=== PATIENT | male | born 1940 | race Caucasian/White ===

== ENCOUNTER 2023-04-08 15:30 | Outpatient (RCR) | payer MEDICARE, SELFPAY | END 2023-08-06 23:59 | disposition home or self-care (01) | PROVIDERS: Visit Provider Physician Assistant | DX: Z98.890 Other specified postprocedural states (principal); Z51.89 Encounter for other specified aftercare | CPT/HCPCS: 97035; 97110; 97140; 97165; X5282 ==

== ENCOUNTER 2023-07-02 14:18 | Emergency (ER) | payer MEDICARE, SELFPAY ==
[2023-07-02 14:22] VITALS: BP 109/67; PULSE 71; RESP 18; TEMP 36.3; O2SAT 97; BMI 27.9
--- NOTE | 2023-07-02 15:15 | ED_ITS ---
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 Discharged with Elifar[facility] and needs workup for possible AFib) presenting to the ER this afternoon for evaluation after he fell and hit his head. He was getting up from bed when he fell and hit the top of his head. He did create a small injury to the top is head and bleeding was controlled prior to arrival. His fall was unwitnessed, but his thinks that he probably tripped on the rug and then head against the closet door. The patient has suffered a diagonal linear abrasion/laceration to his frontal scalp. He was bleeding vigorously at home but was able to control it by direct pressure. He has no other injuries. He denies headache. No neck pain. No numbness or tingling or weakness in his arms or legs. He does have some pre-existing speech trouble and bake gait imbalance because of his previous stroke but is otherwise at his baseline. No other injuries or complaints. No neck pain. No back pain. No chest pain rib pain. No abdominal pain. He did not injure his arms or legs. Related Data Home Medications Medication Instructions Recorded Confirmed apixaban 5 mg tablet (Eliquis) 5 mg PO BID 07/02/23 07/02/23 atorvastatin 40 mg tablet 40 mg PO DAILY 07/02/23 07/02/23 pantoprazole 40 mg tablet,delayed 40 mg PO DAILY 07/02/23 07/02/23 release Allergies Allergy/AdvReac Type Severity Reaction Status Date / Time morphine Allergy Severe Verified 07/02/23 14:27 PFSH PFS Social History Smoking Status: Never smoker How often do you have a drink containing alcohol: never AUDIT-C Alcohol total score: 0 Non-prescribed substance use: denies use Exam Narrative: Exam Narrative: Constitutional: Appears well-developed and well-nourished. Alert. Polite and cooperative. Speaks 1 or 2 word answers because of his baseline aphasia.. Non toxic. HENT: Head: 4 cm linear superficial abrasion/laceration on frontal scalp. No active bleeding. Does not penetrate through the dermis. No depressed skull fracture, Raccoon Eyes, Hernandez's sign, or hemotympanum. Face normal. TMs normal. Nose: Nose normal. Mouth/Throat: Oral mucosa is clear and moist. no trismus. Pharynx normal. Tonsils symmetric. No tonsillar enlargement, erythema, or exudate. Eyes: Conjunctivae normal. EOM normal. Pupils equal, round, and reactive to light. No scleral icterus. Neck: Normal range of motion. Neck supple. No tracheal deviation present. Cardiovascular: Normal rate, regular rhythm. No gallop. No friction rub. No murmur heard. Symmetric radial artery pulses Pulmonary/Chest: Effort normal. No stridor. No respiratory distress. No wheezes. No rales. No rhonchi . No tenderness. Abdominal: Soft. Bowel sounds normal. No distension. No mass. No tenderness. No rebound. No guarding. Musculoskeletal: RUE: Normal range of motion. No tenderness. No deformity LUE: Normal range of motion. No tenderness. No deformity RLE: Normal range of motion. No edema. No tenderness. No deformity LLE: Normal range of motion. No edema. No tenderness. No deformity Neurological: Mental status normal. Attention normal. Alert and oriented x3. GCS 15. Memory normal. Speech slow and halting due to baseline aphasia. Cognition normal. Cranial Nerves intact II-XII except I did not formally test gag or visual acuity. EOMI. Palate elevates symmetrically and tongue protrudes in the midline. Strength: 5/5 trapezius on the right and left 5/5 deltoid on the right and left 5/5 biceps on the right and left 5/5 triceps on the right and left 5/5 prototype model maker on the right and left 5/5 thumb opposition on the right and le ft 5/5 finger abduction on the right and le ft 5/5 hip flexors (L3) on the right and le ft 5/5 quadriceps (L4) on the right and lef t 5/5 tibialis anterior on the right and l eft 5/5 EHL (L5) on the right and left 5/5 gastrocnemius (S1) on the right and left 5/5 hamstring on the right and left Sensation intact to light touch in both upper extremities (C4-T1) Sensation intact to light touch in Both lower extremities (L4-S1). Finger to nose and coordination normal. Skin: Skin is warm and dry. No rash noted. No pallor. Normal capillary refill. Psychiatric: Normal mood. Normal affect. Const: Vital Signs, click to edit/add: Vital Signs - 24 hr 07/02/23 14:22 07/02/23 16:15 Temperature 97.3 F L Pulse Rate [Pulse Oximeter] 71 67 Respiratory Rate 18 18 Blood Pressure [Ri ght Upper Arm] 109/67 119/64 Pulse Oximetry 97 97 Oxygen Delivery Me thod Room Air Course Vital Signs Vital signs: Initial Vital Signs Temperature 97.3 F L 07/02/23 14:22 Temperature Source Temporal Artery Scan 07/02/23 14:22 Pulse Rate 71 07/02/23 14:22 Respiratory Rate 18 07/02/23 14:22 Blood Pressure 109/67 07/02/23 14:22 Blood Pressure Mean 81 07/02/23 14:22 Blood Pressure Position Sitting 07/02/23 14:22 Pulse Oximetry 97 07/02/23 14:22 Oxygen Delivery Method Room Air 07/02/23 14:22 Vital Signs Temperature 97.3 F L 07/02/23 14:22 Pulse Rate 71 07/02/23 14:22 Respiratory Rate 18 07/02/23 14:22 Blood Pressure 109/67 07/02/23 14:22 Pulse Oximetry 97 07/02/23 14:22 Oxygen Delivery Method Room Air 07/02/23 14:22 Temperature 97.3 F L 07/02/23 14:22 Pulse Rate 67 07/02/23 16:15 Respiratory Rate 18 07/02/23 16:15 Blood Pressure 119/64 07/02/23 16:15 Pulse Oximetry 97 07/02/23 16:15 Oxygen Delivery Method Room Air 07/02/23 14:22 Medications Administered Medications: Discontinued Medications Generic Name Dose Route Start Last Admin Trade Name Freq PRN Reason Stop Dose Admin Bacitracin Zinc 1 each 07/02/23 15:45 07/02/23 16:18 Bacitracin 0.9 Gm Packet TOPICAL 07/02/23 15:46 1 each ONCE ONE Administration Medical Decision Making MDM Narrative Medical decision making narrative: This patient presents with blunt head trauma, after he suffered a mechanical tri p and fall at home today. He does have some gait instability after recent stroke. He and his are pretty confident that he tripped over the edge of the rug and did not have a syncopal event. She does not have any other new neurologic deficits to suggest new or worsening stroke. Since he did strike his head and is now on Eliquis were concerned about possible intracranial bleeding. He does have a superficial linear abrasion which can heal by secondary intention. Wound care and antibiotic ointment were applied. Differential includes intracranial injuries (e.g. skull fracture, epidural hematoma, subdural hematoma, intracerebral hemorrhage, and traumatic subarachnoid hemorrhage), verses concussion or other traumatic brain injury. CT imaging was obtained and fortunately was normal. The patient/family understand that they must return if any red flags appear/develop in the coming hours/days, as this may represent an indication to perform a repeat CT scan or further evaluation. Discussed the risk of delayed bleeding on anticoagulants. I have noted that red flags include: headaches that get worse, increased drowsiness, strange behavior, repetitive speech, seizures, repeated vomiting, growing confusion, increased irritability, slurred speech, weakness or numbness, and loss of responsiveness. This information will also be provided in writing at discharge. The patient's questions have been answered. They have a responsible adult to accompany them home. t Imaging Data CT scan - head: Attestation: I have reviewed the pertinent imaging results. My impression: Impression: 1. No evidence of an acute intracranial process. 2. No fracture or soft tissue abnormality. Discharge Plan Discharge Clinical Impression: Abrasion of scalp, Closed head injury Patient Disposition: Home, Self-Care Condition: Stable Instructions: Head Injury (ED) Additional Instructions: As we discussed, please come back to the ER right away if you have any problems especially worsening headache, new confusion, vomiting, unsteadiness, more falls, or any other unusual behavior. Prescriptions: No Action atorvastatin 40 mg tablet 40 mg PO DAILY pantoprazole 40 mg tablet,delayed release (DR/EC) 40 mg PO DAILY Eliquis 5 mg tablet 5 mg PO BID Follow Up/Referrals: Provider,Not a Local [Referring] - Stand Alone Forms: [employer] Info Instructions
--- NOTE | 2023-07-02 15:33 | CT_ITS ---
Patient: BONNIE BOSTON Facility:?[facility] Patient ID:?[id number] Site Patient ID:?[id number]. Site :?[id number] Study:?CT-Head WO-07/02/2023 3:58:06 PM Ordering Physician:SRAVANTHI Final Report: Indication: Fall Technique: CT head without IV contrast Comparison: None Findings: Brain Parenchyma: Global cortical involutional changes. No acute infarct, acute intracranial hemorrhage, mass effect or midline shift. Periventricular and supraventricular white matter hypodensity, suggestive of chronic microvascular ischemic changes. Ventricles: No hydrocephalus. Mild ventricular enlargement, commensurate with the degree of cortical involutional changes and sulcal prominence. Extra-axial Spaces: No abnormal fluid collection. Paranasal sinuses: No significant mucosal thickening. Orbits: Unremarkable. Mastoid Sinuses: Unremarkable. Cranium: No acute fracture. Soft tissues: Unremarkable. Impression: 1. No evidence of an acute intracranial process. 2. No fracture or soft tissue abnormality. Please note that all CT scans at this facility use dose modulation, iterative reconstruction, and/or weight-based dosing when appropriate to reduce radiation dose to as low as reasonably achievable. Dictated by Dustin Diez MD @ 07/02/2023 4:09:06 PM Signed by:?Dustin Diez MD @07/02/2023 4:09:06 PM (Electronic Signature)
[2023-07-02 16:15] VITALS: BP 119/64; PULSE 67; RESP 18; O2SAT 97
[2023-07-02] MEDS: BACITRACIN 0.9 GM PACKET 1 EACH TOPICAL (16:18)
== END 2023-07-02 16:47 | disposition home or self-care (01) ==
PROVIDERS: Emergency Provider Emergency Medicine; PCP Student in an Organized Health Care Education/Training Program
DX: S00.01XA Abrasion of scalp, initial encounter (principal); W06.XXXA Fall from bed, initial encounter
CPT/HCPCS: 70450; 99283; A9270

== ENCOUNTER 2023-07-05 23:39 | Emergency (ER) | payer MEDICARE, SELFPAY ==
[2023-07-05 23:49] VITALS: BP 130/73; PULSE 67; RESP 18; TEMP 36.7; O2SAT 95; BMI 27.9
--- NOTE | 2023-07-05 23:54 | CT_ITS ---
Patient: BONNIE BOSTON Facility:?[facility] Patient ID:?[id number] Site Patient ID:?[id number]. Site :?[id number] Study:?CT-Head W/O-07/06/2023 12:33:14 AM Ordering Physician:RAND Final Report: INDICATION: Slurred speech TECHNIQUE: CT Head without i.v. contrast. Coronal and sagittal reformats were obtained. COMPARISON: 07/02/2023 FINDINGS: CSF space: Unremarkable for age. Brain: No evidence of mass, acute infarction or hemorrhage is seen. No mass- effect or midline shift is seen. Mild diffuse cortical atrophy is noted. There is a curvilinear hypodensity present within the left thalamus, more distinct than on prior examination. Calvarium: The visualized paranasal sinuses are well aerated. The mastoid air cells are clear. The visualized orbits are grossly unremarkable. The calvarium is unremarkable in appearance with no fractures identified. IMPRESSION: 1. There is a curvilinear hypodensity present within the left thalamus, more distinct than on prior examination. The morphology would be unusual for an infarct and assessment with MRI may be helpful. Dictated by Obdulio Sherwood MD @ 07/06/2023 12:50:43 AM Please note that all CT scans at this facility use dose modulation, iterative reconstruction, and/or weight-based dosing when appropriate to reduce radiation dose to as low as reasonably achievable. Dictated by: Obdulio Sherwood MD @ 07/06/2023 00:50:45 Signed by:?Obdulio Sherwood MD @07/06/2023 12:50:45 AM ----ADDENDUM---- ADDENDUM: I reviewed images from outside CT head studies dated 05/24/23 and 05/25/23. There are no substantive changes by CTA; please refer to the most recent MRI findings. ROBE BRAY M.D. Interventional Neuroradiologist [email or web address] LOW:kavita D& Transcribed: 3:16 p.m. Signed by:?Robe Bray MD @07/21/2023 3:25:42 PM (Electronic Signature)
[2023-07-06] VITALS (10 sets, daily range): BP systolic 98–134; BP diastolic 63–73; PULSE 66–71; RESP 16–18; O2SAT 92–96
[2023-07-06 00:19] LABS: Basophils Absolute Auto 0.04 K/uL (0.00-0.30); Basophils Percent Auto 0.5 % (0.0-3.0); Eosinophils Absolute Auto 0.13 K/uL (0.00-0.50); Eosinophils Percent Auto 1.5 % (0.0-7.0); Hematocrit 45.3 % (37.0-53.0); Hemoglobin* 14.7 gm/dL (13.5-17.5); Immature Granulocytes Abs Auto 0.01 K/uL (0.00-0.30); Immature Granulocytes Pct Auto 0.1 %; Lymphocytes Absolute Auto 2.13 K/uL (0.90-2.90); Lymphocytes Percent Auto 24.5 % (20-44); Mean Corpuscular HGB Conc 33 gm/dL (32-36); Mean Corpuscular Hemoglobin 32 pg (26-34); Mean Corpuscular Volume 98 fL (80-100); Monocytes Percent Auto 6.9 % (0.0-11.0); Neutrophils Absolute Auto 5.79 K/uL (1.7-7.0); Neutrophils Percent Auto 66.5 % (42.0-72.0); Platelet Count* 169 K/uL (140-440); RDW Coefficient of Variation % 12.8 % (11.5-15.5); Red Blood Count 4.64 m/uL (4.30-5.90)
[2023-07-06 00:20] LABS: Albumin* 4.3 g/dL (3.3-5.0); Chloride* 109 mmol/L (96-114); Slide Review Reflex No
[2023-07-06 00:21] LABS: Potassium* 4.4 mmol/L (3.6-5.1); Sodium* 140 mmol/L (135-149)
[2023-07-06 00:23] LABS: Anion Gap 6 mEq/L (7-15); Bilirubin Total* 2.3 mg/dL (0.1-1.5); Carbon Dioxide* 25 mmol/L (20-32); Creatinine* 0.9 mg/dL (0.5-1.5); Est. Creatinine Clearance* 58.57; Estimated Glomerular Filt Rate 84 ml/min
[2023-07-06 00:24] LABS: Alanine Aminotransferase* 29 U/L (4-50); Alkaline Phosphatase* 57 U/L (40-150); Aspartate Amino Transferase* 26 U/L (12-35); Blood Urea Nitrogen* 18 mg/dL (7-30); Calcium* 9.2 mg/dL (8.4-10.6); Glucose* 112 mg/dL (60-115); Total Protein* 7.6 g/dL (6.0-8.3)
--- NOTE | 2023-07-06 00:26 | ED.GENADULT ---
HPI - General Adult General Date Seen: 07/06/23 <Rodger Stallings - Last Filed: 07/06/23 01:09> Chief complaint: Unspecified Complaint, Adult <Rodger Stallings - Last Filed: 07/06/23 01:09> Stated complaint: mixed up speech, stroke May 2022 <Rodger Stallings Last Filed: 07/06/23 01:09> Time Seen by Provider: 07/05/23 23:46 <Rodger Stallings - Last Filed: 07/06/23 01:09> Source: patient and family <Rodger Stallings - Last Filed: 07/06/23 01:09> Mode of arrival: ambulatory <Rodger Stallings DO - Last Filed: 07/06/23 01:09> Limitations: no limitations <Rodger Stallings Last Filed: 07/06/23 01:09> History of Present Illness HPI narrative: Patient is an 82-year-old male presenting to emergency department for speech issues. Patient to better about 19:30 when he woke up about 21:15 when his states she thought he was mixing up his speech and was sounding confused. She states this is what he was like previously when he had a stroke 6 weeks ago on 05/16/2023. He has residual right-sided weakness from that. He told her that there is rather come to the emergency department to be evaluated. She states by the time they arrived he was acting back to normal and he wanted to go home but she was insistent that he be seen and evaluated. She states that this time he is acting completely back to baseline is no longer having symptoms. He states he he is feeling back to normal at this time also. Because she was able to answer all questions I asked him appropriately. Was following all commands appropriately. Denies headache, chest pain, shortness of breath, vision changes, weakness, numbness, abdominal pain, dysuria. <Rodger Stallings DO - Last Filed: 07/06/23 01:09> Related Data Home medications: Home Medications Medication Instructions Recorded Confirmed apixaban 5 mg tablet (Eliquis) 5 mg PO BID 07/02/23 07/02/23 atorvastatin 40 mg tablet 40 mg PO DAILY 07/02/23 07/02/23 pantoprazole 40 mg tablet,delayed 40 mg PO DAILY 07/02/23 07/02/23 release <Rodger Stallings DO - Last Filed: 07/06/23 01:09> Allergies/adverse reactions: Allergies Allergy/AdvReac Type Severity Reaction Status Date / Time morphine Allergy Severe Verified 07/02/23 14:27 <Rodger Stallings DO - Last Filed: 07/06/23 01:09> Review of Systems Status of ROS: Reports: 10 or more systems reviewed and unremarkable except as noted in History and below <Rodger Stallings DO - Last Filed: 07/06/23 01:09> PFSH PFS Social History: Social History Smoking Status: Never smoker How often do you have a drink containing alcohol: never AUDIT-C Alcohol total score: 0 Non-prescribed substance use: denies use <Rodger Stallings DO - Last Filed: 07/06/23 01:09> Exam Narrative: Exam Narrative: Const: Well-nourished, Well-developed, in no distress Eyes: PERRL, no conjunctival injection, and symmetrical lids HENT: Atraumatic external nose and ears. Moist mucous membranes. Neck: Symmetric, trachea midline, No thyromegaly. CVS: RRR, No murmurs or gallops. Peripheral pulses 2+ and equal in all extremities RESP: Unlabored respiratory effort. Clear to auscultation bilaterally. GI: Nontender/Nondistended, No rebound or guarding. MSK:Extremities w/o deformity, Normal Active ROM Skin: Warm, Dry. No rashes or lesions. Neuro: Normal Muscle tone, Cranial nerves 2-12 grossly intact, normal [id number], normal [id number], normal gait, normal strength 5/5 upper lower extremities bilaterally, normal sensation upper and lower extremities bilaterally, normal rapid alternating movements. Psych: Awake, Alert, & Oriented x3. Appropriate mood and affect. <Rodger Stallings DO - Last Filed: 07/06/23 01:09> Const: Vital Signs, click to edit/add: Vital Signs - 24 hr 07/05/23 23:49 Temperature 98.1 F Pulse Rate [Pulse Oximeter] 67 Respiratory Rate 18 Blood Pressure [Ri ght Upper Arm] 130/73 Pulse Oximetry 95 Oxygen Delivery Me thod Room Air <Rodger Stallings DO - Last Filed: 07/06/23 01:09> Vital Signs, click to edit/add: Vital Signs - 24 hr 07/05/23 23:49 Temperature 98.1 F Pulse Rate [Pulse Oximeter] 67 Respiratory Rate 18 Blood Pressure [Ri ght Upper Arm] 130/73 Pulse Oximetry 95 Oxygen Delivery Me thod Room Air <Fredy Cadet MD - Last Filed: 07/06/23 02:37> Course Course ED Course: Patient was signed over to me, pending MRI of his head, he is clinically stable, back to baseline. Per the report we do have an opening possibly at 8:00 a.m. for him, worse case scenario 11:00 a.m.. I did discuss the case with the stroke neurologist , the finding of the occlusion of the P1 segment, is actually an old finding, as it is noted on the head CTA from [facility] 06/02/2023. Dr. Moeller suggest to continue his medications for now, she will put on the list for follow-up for tomorrow by Stroke Neurology. <Fredy Cadet MD - Last Filed: 07/06/23 02:37> Vital Signs Vital signs: Initial Vital Signs Temperature 98.1 F 07/05/23 23:49 Temperature Source Temporal Artery Scan 07/05/23 23:49 Pulse Rate 67 07/05/23 23:49 Respiratory Rate 18 07/05/23 23:49 Blood Pressure 130/73 07/05/23 23:49 Blood Pressure Mean 92 07/05/23 23:49 Blood Pressure Position Sitting 07/05/23 23:49 Pulse Oximetry 95 07/05/23 23:49 Oxygen Delivery Method Room Air 07/05/23 23:49 Vital Signs Temperature 98.1 F 07/05/23 23:49 Pulse Rate 67 07/05/23 23:49 Respiratory Rate 18 07/05/23 23:49 Blood Pressure 130/73 07/05/23 23:49 Pulse Oximetry 95 07/05/23 23:49 Oxygen Delivery Method Room Air 07/05/23 23:49 Temperature 98.1 F 07/05/23 23:49 Pulse Rate 67 07/05/23 23:49 Respiratory Rate 18 07/05/23 23:49 Blood Pressure 130/73 07/05/23 23:49 Pulse Oximetry 95 07/05/23 23:49 Oxygen Delivery Method Room Air 07/05/23 23:49 <Rodger Stallings DO - Last Filed: 07/06/23 01:09> Initial Vital Signs Temperature 98.1 F 07/05/23 23:49 Temperature Source Temporal Artery Scan 07/05/23 23:49 Pulse Rate 67 07/05/23 23:49 Respiratory Rate 18 07/05/23 23:49 Blood Pressure 130/73 07/05/23 23:49 Blood Pressure Mean 92 07/05/23 23:49 Blood Pressure Position Sitting 07/05/23 23:49 Pulse Oximetry 95 07/05/23 23:49 Oxygen Delivery Method Room Air 07/05/23 23:49 Vital Signs Temperature 98.1 F 07/05/23 23:49 Pulse Rate 67 07/05/23 23:49 Respiratory Rate 18 07/05/23 23:49 Blood Pressure 130/73 07/05/23 23:49 Pulse Oximetry 95 07/05/23 23:49 Oxygen Delivery Method Room Air 07/05/23 23:49 Temperature 98.1 F 07/05/23 23:49 Pulse Rate 67 07/05/23 23:49 Respiratory Rate 18 07/05/23 23:49 Blood Pressure 130/73 07/05/23 23:49 Pulse Oximetry 95 07/05/23 23:49 Oxygen Delivery Method Room Air 07/05/23 23:49 <Fredy Cadet MD - Last Filed: 07/06/23 02:37> Medical Decision Making MDM Narrative Medical decision making narrative: Patient is an 82-year-old male presenting for concerns of a stroke. I went to the room still dizzy was brought back. By that time it was 21:45 about 4 hours and 15 minutes since his last known well. By this time also he was acting back to his baseline was no longer symptomatic. NIH stroke scale at this time was 0. His also states he is acting normally again. Due to that I do not believe is necessary to call a code stroke. Did send him for immediate head CT though. Was here few days ago after a fall. Will also order CBC, CMP, troponin, COVID/flu/RSV, urinalysis. CT scan head reviewed by myself shows no signs of acute intracranial abnormalities. Radiologist read does show a on hypodensity within the left thalamus that would be unusual for infarct. Did states an MRI would be helpful for better determination what this is. CTA is were added on. CBC, CMP, troponin showed no concerning abnormalities. EKG shows no concerning findings. I did speak to Dr. Moeller of [facility] and she thinks the patient should get an MRI in the morning. CTA is pending at this time patient was signed out to my colleague pending final results. <Rodger Stallings DO - Last Filed: 07/06/23 01:09> Medical Records Medical records reviewed: Yes I reviewed the patient's medical records <Fredy Cadet MD - Last Filed: 07/06/23 02:37> Lab Data Lab results reviewed: Yes I reviewed the patient's lab results <Fredy Cadet MD - Last Filed: 07/06/23 02:37> Labs: Lab Results 07/06/23 07/06/23 Range/Units 00:00 00:20 WBC 8.70 (4.50-11.00) K/uL RBC 4.64 (4.30-5.90) m/uL Hgb 14.7 (13.5-17.5) gm/dL Hct 45.3 (37.0-53.0) % MCV 98 (80-100) fL MCH 32 (26-34) pg MCHC 33 (32-36) gm/dL RDW Coeff of Danielle 12.8 (11.5-15.5) % Plt Count 169 (140-440) K/uL Neut % (Auto) 66.5 (42.0-72.0) % Lymph % (Auto) 24.5 (20-44) % [place] % (Auto) 6.9 (0.0-11.0) % Eos % (Auto) 1.5 (0.0-7.0) % Baso % (Auto) 0.5 (0.0-3.0) % Neut # (Auto) 5.79 (1.7-7.0) K/uL Lymph # (Auto) 2.13 (0.90-2.90) K/uL [place] # (Auto) 0.60 (0.00-0.90) K/UL Eos # (Auto) 0.13 (0.00-0.50) K/uL Baso # (Auto) 0.04 (0.00-0.30) K/uL Abs Immat Gran (auto) 0.01 (0.00-0.30) K/uL Imm/Tot Granulo (auto) 0.1 % Sodium 140 (135-149) mmol/L Potassium 4.4 (3.6-5.1) mmol/L Chloride 109 (96-114) mmol/L Carbon Dioxide 25 (20-32) mmol/L Anion Gap 6 L (7-15) mEq/L BUN 18 (7-30) mg/dL Creatinine 0.9 (0.5-1.5) mg/dL Estimated Creat Clear 58.57 Estimated GFR 84 ml/min Glucose 112 (60-115) mg/dL Calcium 9.2 (8.4-10.6) mg/dL Total Bilirubin 2.3 H (0.1-1.5) mg/dL AST 26 (12-35) U/L ALT 29 (4-50) U/L Alkaline Phosphatase 57 (40-150) U/L Troponin I < 0.01 L (0.01-0.04) ng/mL Total Protein 7.6 (6.0-8.3) g/dL Albumin 4.3 (3.3-5.0) g/dL SARS-CoV-2 (PCR) Negative SARS-CoV-2 (Negative) Influenza Type A (PCR) Negative PCR FLU A (Negative) Influenza Type B (PCR) Negative PCR FLU B (Negative) RSV (PCR) Negative PCR RSV (Negative) <Rodger Stallings, DO - Last Filed: 07/06/23 01:09> Lab Results 07/06/23 07/06/23 Range/Units 00:00 00:20 WBC 8.70 (4.50-11.00) K/uL RBC 4.64 (4.30-5.90) m/uL Hgb 14.7 (13.5-17.5) gm/dL Hct 45.3 (37.0-53.0) % MCV 98 (80-100) fL MCH 32 (26-34) pg MCHC 33 (32-36) gm/dL RDW Coeff of Danielle 12.8 (11.5-15.5) % Plt Count 169 (140-440) K/uL Neut % (Auto) 66.5 (42.0-72.0) % Lymph % (Auto) 24.5 (20-44) % [place] % (Auto) 6.9 (0.0-11.0) % Eos % (Auto) 1.5 (0.0-7.0) % Baso % (Auto) 0.5 (0.0-3.0) % Neut # (Auto) 5.79 (1.7-7.0) K/uL Lymph # (Auto) 2.13 (0.90-2.90) K/uL [place] # (Auto) 0.60 (0.00-0.90) K/UL Eos # (Auto) 0.13 (0.00-0.50) K/uL Baso # (Auto) 0.04 (0.00-0.30) K/uL Abs Immat Gran (auto) 0.01 (0.00-0.30) K/uL Imm/Tot Granulo (auto) 0.1 % Sodium 140 (135-149) mmol/L Potassium 4.4 (3.6-5.1) mmol/L Chloride 109 (96-114) mmol/L Carbon Dioxide 25 (20-32) mmol/L Anion Gap 6 L (7-15) mEq/L BUN 18 (7-30) mg/dL Creatinine 0.9 (0.5-1.5) mg/dL Estimated Creat Clear 58.57 Estimated GFR 84 ml/min Glucose 112 (60-115) mg/dL Calcium 9.2 (8.4-10.6) mg/dL Total Bilirubin 2.3 H (0.1-1.5) mg/dL AST 26 (12-35) U/L ALT 29 (4-50) U/L Alkaline Phosphatase 57 (40-150) U/L Troponin I < 0.01 L (0.01-0.04) ng/mL Total Protein 7.6 (6.0-8.3) g/dL Albumin 4.3 (3.3-5.0) g/dL SARS-CoV-2 (PCR) Negative SARS-CoV-2 (Negative) Influenza Type A (PCR) Negative PCR FLU A (Negative) Influenza Type B (PCR) Negative PCR FLU B (Negative) RSV (PCR) Negative PCR RSV (Negative) <Fredy Cadet MD - Last Filed: 07/06/23 02:37> Imaging Data CT scan head: Attestation: I have reviewed the pertinent imaging results. <Rodger Stallings DO - Last Filed: 07/06/23 01:09> Radiologist's impression: 1. There is a curvilinear hypodensity present within the left thalamus, more distinct than on prior examination. The morphology would be unusual for an infarct and assessment with MRI may be helpful. Dictated by Obdulio Sherwood MD @ 07/06/2023 12:50:43 AM Please note that all CT scans at this facility use dose modulation, iterative reconstruction, and/or weight-based dosing when appropriate to reduce radiation dose to as low as reasonably achievable. Dictated by: Obdulio Sherwood MD @ 07/06/2023 00:50:45 <Rodger Stallings DO - Last Filed: 07/06/23 01:09> 1. There is a curvilinear hypodensity present within the left thalamus, more distinct than on prior examination. The morphology would be unusual for an infarct and assessment with MRI may be helpful. Dictated by Obdulio Sherwood MD @ 07/06/2023 12:50:43 AM Please note that all CT scans at this facility use dose modulation, iterative reconstruction, and/or weight-based dosing when appropriate to reduce radiation dose to as low as reasonably achievable. Dictated by: Obdulio Sherwood MD @ 07/06/2023 00:50:45 Patient: BONNIE BOSTON Facility:?[facility] Patient ID:?[id number] Site Patient ID:?[id number]. Site :?[id number] Study:?CT-Head Angio CTA HEAD W/ISOVUE 370 95CC-07/06/2023 1:30:03 AM Ordering Physician:RAND Preliminary Report: PRELIMINARY IMPRESSION: 1. Focal occlusion of the left P1 segment is noted and is of uncertain chronicity. 2. Mild atherosclerotic calcification of the intracranial ICAs are noted bilaterally. 3. Calcific plaque is present in the carotid bulbs bilaterally with less than 50 percent diameter stenosis. 4. There is a hypodense nodule in the left thyroid lobe measuring 1.5 cm. Dictated by Obdulio Sherwood MD @ 07/06/2023 1:40:24 AM Read by:?Obdulio Sherwood MD @07/06/2023 1:46:32 AM <Fredy Cadet MD - Last Filed: 07/06/23 02:37> ECG Data Attestation: I personally reviewed and interpreted this ECG as follows: <Rodger Stallings DO - Last Filed: 07/06/23 01:09> Prior ECG tracings: not available for review <Rodger Stallings DO - Last Filed: 07/06/23 01:09> Interpretation: Normal sinus rhythm with a rate of 71 beats per minute, first-degree AV block, rest of intervals within normal limits, normal axis, no ST or T-wave abnormalities. <Rodger Stallings DO - Last Filed: 07/06/23 01:09> Discharge Plan Discharge Clinical Impression: Brain TIA, History of ischemic vertebrobasilar artery thalamic stroke <Rodger Stallings DO - Last Filed: 07/06/23 01:09> Patient Disposition: Admitted As Observation <Rodger Stallings DO - Last Filed: 07/06/23 01:09> Condition: Improved <Rodger Stallings DO - Last Filed: 07/06/23 01:09>
--- NOTE | 2023-07-06 00:33 | CT_ITS ---
Patient: BONNIE BOSTON Facility:?[facility] Patient ID:?[id number] Site Patient ID:?[id number]. Site :?[id number] Study:?CT-Neck Angio CTA NECK W/ISOVUE 370 95CC-07/06/2023 1:29:15 AM Ordering Physician:RAND Final Report: INDICATION: Acute stroke. TECHNIQUE: CTA neck with contrast bolus tracking, 3D angiographic rendering using maximum intensity projection (MIP) and images permanently archived. FINDINGS: There is carotid atherosclerosis bilaterally. There is no significant carotid artery stenosis or dissection. There is no significant vertebral artery stenosis or dissection. There is a 1.5 cm hypodense nodule in the left thyroid, indeterminate. The soft tissues of the neck are otherwise within normal limits. Degenerative changes are noted in the cervical spine. IMPRESSION: Carotid atherosclerosis without significant stenosis. Please note that all CT scans at this facility use dose modulation, iterative reconstruction, and/or weight-based dosing when appropriate to reduce radiation dose to as low as reasonably achievable. Dictated by Robe Saez MD @ 07/06/2023 9:11:03 AM Signed by:?Robe Saez MD @07/06/2023 9:11:03 AM (Electronic Signature)
--- NOTE | 2023-07-06 00:33 | CT_ITS ---
Patient: BONNIE BOSTON Facility:?[facility] Patient ID:?[id number] Site Patient ID:?[id number]. Site :?[id number] Study:?CT-Head Angio CTA HEAD W/ISOVUE 370 95CC-07/06/2023 1:30:03 AM Ordering Physician:RAND Final Report: INDICATION: Acute stroke. TECHNIQUE: CTA head with contrast bolus tracking, 3D angiographic rendering using maximum intensity projection (MIP) and images permanently archived. FINDINGS: There is scattered intracranial atherosclerotic disease. There is a left ESCORT CAR DRIVER occlusion. There is normal opacification of the anterior circulation. There is no large vessel occlusion. No aneurysm is identified. IMPRESSION: Left ESCORT CAR DRIVER occlusion. Please note that all CT scans at this facility use dose modulation, iterative reconstruction, and/or weight-based dosing when appropriate to reduce radiation dose to as low as reasonably achievable. Dictated by Robe Saez MD @ 07/06/2023 9:08:47 AM Signed by:?Robe Saez MD @07/06/2023 9:08:47 AM (Electronic Signature
[2023-07-06 00:38] LABS: Troponin I* < 0.01 ng/mL (0.01-0.04)
[2023-07-06 01:09] LABS: PCR FLU A Negative PCR FLU A (Negative); PCR FLU B Negative PCR FLU B (Negative); PCR RSV Negative PCR RSV (Negative); SARS PCR* Negative SARS-CoV-2 (Negative)
--- NOTE | 2023-07-06 04:28 | MR_ITS ---
Patient: BONNIE BOSTON Facility:?[facility] Patient ID:?[id number] Site Patient ID:?[id number]. Site :?1940 Study:?MRI-Head W/O-07/06/2023 7:47:24 AM Ordering Physician:CARLOS EDUARDO WATKINS Final Report: Indication: HX OF THALAMIC STROKE, LT SIDED SYMPTOMS Technique: Noncontrast sagittal T1, axial FLAIR, T2, diffusion weighted sequences are provided. Comparison: CT head July 02, 2023 Findings: Small focus of restricted diffusion within the left medial thalamus. Multiple foci of cortical and subcortical restricted diffusion within the left occipital lobe. These areas of restricted diffusion demonstrate subtle increased FLAIR signal. No significant mass effect or midline shift. No herniation. A more remote anterior left thalamic infarct is demonstrated as seen on CT from May 25, 2023. Periventricular and subcortical white matter increased T2/FLAIR signal hyperintensity likely artist's representative of chronic microvascular ischemic changes. Moderate global parenchymal volume loss. No intracranial hemorrhage or extra- axial fluid collection. Expected flow voids in the cavernous carotids and basilar artery. Paranasal sinuses are clear. Impression: Restricted diffusion within the left DRAGLINE OILER territory involving the thalamus and occipital lobe. Early increased FLAIR signal hyperintensity is seen within these regions likely indicating late hyperacute infarct timeframe within the last 6-24 hours. A more remote anterior left thalamic infarct is demonstrated as seen on CT from May 25, 2023. Findings discussed with Dr. Viera at 8:15 AM. Dictated by Reg Albright MD @ 07/06/2023 8:16:20 AM Signed by:?Reg Albright MD @07/06/2023 8:16:20 AM (Electronic Signature)
[2023-07-06] MEDS: 0.9 % SODIUM CHLORIDE 1000 ml 1,000 ML IV (08:39)
== END 2023-07-06 11:06 | disposition home or self-care (01) ==
PROVIDERS: Emergency Provider Student in an Organized Health Care Education/Training Program; PCP Student in an Organized Health Care Education/Training Program
DX: G45.9 Transient cerebral ischemic attack, unspecified (principal)
CPT/HCPCS: 36415; 70450; 70496; 70498; 70551; 80053; 81001; 84484; 85025; 87631; 93005; 99284; 99285; J7030; Q9967

== ENCOUNTER 2024-06-23 11:02 | Emergency (ER) | payer MEDICARE, SELFPAY ==
[2024-06-23 11:27] VITALS: BP 143/74; PULSE 101; RESP 16; TEMP 37.1; O2SAT 95; BMI 28.6
--- NOTE | 2024-06-23 11:43 | ED_ITS ---
HPI - Skin/Abscess/Foreign Bdy General Time Seen by Provider: 11:43 Date Seen: 06/23/24 Chief complaint: Skin/Abscess/Foreign Body Stated complaint: rash on back Time Seen by Provider: 06/23/24 11:22 Source: patient and RN notes reviewed Mode of arrival: ambulatory Limitations: no limitations History of Present Illness HPI narrative: This 83-year-old male is accompanied by his for concern of a rash. The rash started maybe about a week and half ago. It is not bothering oral, no itching. He started on bupropion XL 150 mg daily, was prescribed June 09 but he did not started until June 14. He stop this medicine 2 days ago. He did go to [place] [facility] yesterday for the rashes he could not get into his primary. They were told to stop the bupropion, prednisone was started. Rash is somewhat worse now, was on his back yesterday, is noted to be on his trunk and legs and arms. He did take Benadryl for sleeping last night, slept half the night through. The Benadryl was given for sleep purposes, not rash. He has had a little bit of dry mouth recently but no noted mucosal lesions. No abdominal symptoms. He is only on aspirin and atorvastatin otherwise. He has had a recent stroke in his history. Related Data Home Medications ?Medication ?Instructions ?Recorded ?Confirmed atorvastatin 40 mg tablet 40 mg PO DAILY 07/02/23 06/23/24 aspirin 06/23/24 prednisone 06/23/24 Allergies Allergy/AdvReac Type Severity Reaction Status Date / Time morphine Allergy Severe Verified 05/13/24 10:34 Review of Systems Status of ROS: Reports: 6 or more systems reviewed and unremarkable except as noted in History and below [facility] Medical History CVA (cerebral vascular accident) ?I63.9 - Cerebral infarction, unspecified (ICD-10) Social History Smoking Status: Former smoker How often do you have a drink containing alcohol: 2-3 times a week AUDIT-C Alcohol total score: 3 Non-prescribed substance use: denies use Exam Const: Vital Signs, click to edit/add: Vital Signs - 24 hr 06/23/24 11:27 Temperature 98.8 F Pulse Rate [Pulse Oximeter] 101 H Respiratory Rate 16 Blood Pressure [Ri ght Upper Arm] 143/74 H Pulse Oximetry 95 Oxygen Delivery Me thod Room Air Patient is alert, interactive, no apparent distress. Sclera clear, symmetric facial function, face unaffected with rash. Oropharynx with normal mucosa, no exudates, no erythema, no mucosal lesions, tongue normal. His speech is normal. Lungs are clear, good air entry, wheeze or crackles. CV regular rate and rhythm, no murmur, normal S1-S2. Abdomen is soft, nontender, nondistended, no organomegaly, no rebound or guarding. From his neck on do his chest, abdomen and on his back he has an erythematous more macular rash, summer smaller, some are more circular lesions up to about a cm or smaller in diameter. There is no vesicles, no Rho shins. There is no petechial nature. On his arms he has some macular papular changes without vesicles. On his legs it almost has a little bit more of a petechial appearance but does seem to armani on palpation. There is no vesicles, the rash is not nodular or tender. Really does appear to of be consistent with drug rash or reaction. Documenting provider has reviewed patient's vital signs: yes Course Course ED Course: Did discuss with his that we could check some labs. Did review with her that drug eruptions can actually worsen for the improved. It is fortunate that he is not itchy or symptomatic from this. If labs are stable, platelets look fine, will likely have him continue the prednisone and continue treatment for drug eruption. Do completely support cessation of the bupropion. Vital Signs Vital signs: Initial Vital Signs Temperature 98.8 F 06/23/24 11:27 Temperature Source Temporal Artery Scan 06/23/24 11:27 Pulse Rate 101 H 06/23/24 11:27 Respiratory Rate 16 06/23/24 11:27 Blood Pressure 143/74 H 06/23/24 11:27 Blood Pressure Mean 97 06/23/24 11:27 Blood Pressure Position Sitting 06/23/24 11:27 Pulse Oximetry 95 06/23/24 11:27 Oxygen Delivery Method Room Air 06/23/24 11:27 Vital Signs Temperature 98.8 F 06/23/24 11:27 Pulse Rate 101 H 06/23/24 11:27 Respiratory Rate 16 06/23/24 11:27 Blood Pressure 143/74 H 06/23/24 11:27 Pulse Oximetry 95 06/23/24 11:27 Oxygen Delivery Method Room Air 06/23/24 11:27 Temperature 98.8 F 06/23/24 11:27 Pulse Rate 101 H 06/23/24 11:27 Respiratory Rate 16 06/23/24 11:27 Blood Pressure 143/74 H 06/23/24 11:27 Pulse Oximetry 95 06/23/24 11:27 Oxygen Delivery Method Room Air 06/23/24 11:27 MDM - Skin/Abscess/Foreign Bdy Lab Data Attestation: I reviewed the patient's lab results. Lab results narrative: Bili has been elevated before, patient is not jaundiced. Labs: Lab Results 06/23/24 Range/Units 12:08 WBC 13.36 H (4.50-11.00) K/uL RBC 4.62 (4.30-5.90) m/uL Hgb 15.0 (13.5-17.5) gm/dL Hct 45.2 (37.0-53.0) % MCV 98 (80-100) fL MCH 33 (26-34) pg MCHC 33 (32-36) gm/dL RDW Coeff of Danielle 13.0 (11.5-15.5) % Plt Count 145 (140-440) K/uL Neut % (Auto) 87.8 H (42.0-72.0) % Lymph % (Auto) 1.9 L (20-44) % Lyon % (Auto) 5.8 (0.0-11.0) % Eos % (Auto) 4.1 (0.0-7.0) % Baso % (Auto) 0.1 (0.0-3.0) % Neut # (Auto) 11.70 H (1.7-7.0) K/uL Lymph # (Auto) 0.30 L (0.90-2.90) K/uL Lyon # (Auto) 0.80 (0.00-0.90) K/UL Eos # (Auto) 0.50 (0.00-0.50) K/uL Baso # (Auto) 0.00 (0.00-0.30) K/uL Abs Immat Gran (auto) 0.00 (0.00-0.30) K/uL Imm/Tot Granulo (auto) 0.3 % Sodium 139 (135-149) mmol/L Potassium 4.3 (3.6-5.1) mmol/L Chloride 101 (96-114) mmol/L Carbon Dioxide 29 (20-32) mmol/L Anion Gap 9 (7-15) mEq/L BUN 23 (7-30) mg/dL Creatinine 1.2 (0.5-1.5) mg/dL Estimated Creat Clear 47.93 Estimated GFR 59 ml/min Glucose 136 H (60-115) mg/dL Calcium 9.3 (8.4-10.6) mg/dL Total Bilirubin 2.8 H (0.1-1.5) mg/dL AST 25 (12-35) U/L ALT 36 (4-50) U/L Alkaline Phosphatase 57 (40-150) U/L C-Reactive Protein 2.1 H (0.5-1.0) mg/dL Total Protein 7.3 (6.0-8.3) g/dL Albumin 4.4 (3.3-5.0) g/dL Discharge Plan Discharge Clinical Impression: Allergic reaction to drug Patient Disposition: Home, Self-Care Condition: Stable Instructions: General Allergic Reaction (ED) Additional Instructions: This rash really does seem to be consistent with an allergic drug reaction. Would avoid further Wellbutrin. If the rash is not starting to go way within the next few days, may end up needing to see Dermatology. Certainly if rash is worsening or further concerns with this rash, Dermatology may need to be consulted. Would recommend doing Zyrtec or Claritin twice a day for the next 3- 5 days over Benadryl, these typically have less SUPERVISOR ROSE GRADING side effects than the Benadryl. Complete the prednisone as it was prescribed. Activity Level: Activity as Tolerated Prescriptions: No Action atorvastatin 40 mg tablet 40 mg PO DAILY aspirin prednisone Follow Up/Referrals: Forrest Sin MD [Primary Care Provider] - Stand Alone Forms: [employer] Info Instructions
[2024-06-23 12:17] LABS: Basophils Percent Auto 0.1 % (0.0-3.0); Eosinophils Percent Auto 4.1 % (0.0-7.0); Hematocrit 45.2 % (37.0-53.0); Immature Granulocytes Pct Auto 0.3 %; Lymphocytes Percent Auto 1.9 % (20-44); Mean Corpuscular HGB Conc 33 gm/dL (32-36); Mean Corpuscular Hemoglobin 33 pg (26-34); Mean Corpuscular Volume 98 fL (80-100); Monocytes Percent Auto 5.8 % (0.0-11.0); Neutrophils Percent Auto 87.8 % (42.0-72.0); Platelet Count* 145 K/uL (140-440); Red Blood Count 4.62 m/uL (4.30-5.90); White Blood Count* 13.36 K/uL (4.50-11.00)
--- OUTSIDE RECORDS SUMMARY | 2024-06-23 12:17 | XMS_ITS | Encounter Summary ---
Author Organization Cost Address [address] [place] [address] Care Team Providers Care Tonguer Name Role Phone Jb Mosquera MD Unavailable [phone] Valentin Alejo MD Unavailable Jamal Mercado MD Unavailable [phone] Brandon Sin Primary Care Provider [phone] Gilberto France APRN JUICE STANDARDIZER Unavailable [phone] Jori Carrion MD Unavailable [phone] Jamal Mercado MD Unavailable [phone] Johanny Felton PA-C Unavailable [phone] Jazmine Moulton APRN JUICE STANDARDIZER Unavailable [phone] Jazmine Moulton APRN JUICE STANDARDIZER Unavailable [phone] Reason for Visit * Reason Onset Date Comments Patient Request 08/04/2023 Send Link Early for Video Appointment Encounter Details Date Type Department Care Team (Late st Contact Info) Description 08/04/2023 [facility] [address] [facility] [address] [place] [address] Jamal Mercado MD [address] [facility] [address] [place] [address] Patient Request (Send Link Early for Video Appointment) Social History Tobacco Use Types Packs/Day Years Used Date Smoking Tobacco: Never Passive Smoke Exposure: Never Alcohol Use Standard Drinks/Week Comments Yes 0 (1 standard drink = 0.6 oz pur e alcohol) PHQ-2 Answer Date Recorded PHQ-2 Score 2 07/06/2023 Adolescent Education Answer Date Record ed Getting School Help Needed Not on file 05/15 Sex and Gender Information Value Date Recorded Sex Assigned at Not on file 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 Vamshi Brandon - 08/04/2023 2:[address] [facility] Call Center Phone Message May a detailed message be left on voicemail: yes Reason for Call: Other: Gloria is requesting that the link for Charles's virtual visit be sent earlyin the day tomorrow, 08/04, as he is coming into her office to conduct it and she wants to be sure that she's able to get it set up to bypass computer fire [place]. Action Taken: Other: Cardiology Travel Screening: Not Applicable Thank you! Specialty [facility] documented in this encounter Plan of Treatment Upcoming Encounters Date Type Department Care Team (Late st Contact Info) Description 12/19/2024 1:30 PM CDT Office Visit [facility] Neurology Clinics - [address], [address] [place] [address] Jazmine Moulton APRN [facility] [address] [place] [id number] documented as of this encounter Visit Diagnoses Not on filedocumented in this encounter Care Teams Tonguer Relationship Specialty Start Date End Date Brandon Sin [id number] [place] [phone] PCP - General 07/06/23 Jb Mosquera MD [address] [place] [address] 224695 Resident Physical Medicine and Rehabilitation 06/15/23 Valentin Alejo MD [address] [place], [place] [address] Neurology 06/15/23 Jamal Mercado MD [address] [address] Cardiovascular Disease 06/15/23 Gilberto France APRN JUICE STANDARDIZER [address] [place] [address] [phone] Assigned Cancer Care Provider 07/06/23 08/04/23 Jori Carrion MD [address] [place] [address] [id number] Assigned Cancer Care Provider 08/05/23 Jamal Mercado MD [address] [address] Assigned Heart and Vascular Provider 08/05/23 Johanny eFlton PA-C [address] [place] [address] Assigned Surgical Provider 09/05/23 01/04/24 Jazmine Moulton APRN [facility] [employer] [address] [place] [address] Nurse Practitioner Psychiatry & Neurology Vascular Neurology 10/01/23 Jazmine Moulton APRN [facility] [address] [place] [address] Assigned Surgical Provider 01/05/24 documented as of this encounter
--- OUTSIDE RECORDS SUMMARY | 2024-06-23 12:17 | XMS_ITS | Encounter Summary ---
Author Organization [facility] Address [address] [place] [address] Care Team Providers Care Mechanical Test Engineer Name Role Phone Will Douglas MD Primary Care Provider [phone] Jb Mosquera MD Unavailable [phone] Valentin Alejo MD Unavailable Jamal Mercado MD Unavailable [phone] Brandon Sin Primary Care Provider [phone] Gilberto France LAUNDRY OPERATOR WASH ROOM WARP DYEING VAT TENDER Unavailable [phone] Jori Carrion MD Unavailable [phone] Jamal Mercado MD Unavailable [phone] Johanny Felton PA-C Unavailable [phone] Jazmine Moulton LAUNDRY OPERATOR WASH ROOM WARP DYEING VAT TENDER Unavailable [phone] Jazmine Moulton LAUNDRY OPERATOR WASH ROOM WARP DYEING VAT TENDER Unavailable [phone] Reason for Visit * Reason Onset Date Comments Appointment 06/07/2023 Encounter Details Date Type Department Care Team (Late st Contact Info) Description 06/07/2023 Telephone [facility] [address], [address] [facility] Medical C[place] [facility] [place] [phone] Ole Lomax MD [address] [facility] [address] [place] [address] Appointment Social History Tobacco Use Types Packs/Day Years Used Date Smoking Tobacco: Never Alcohol Use Standard Drinks/Week Comments Yes 0 (1 standard drink = 0.6 oz pur e alcohol) occ 3 times aweek wine Adolescent Education Answer Date Record ed Getting School Help Needed Not on file 05/15 Sex and Gender Information Value Date Recorded Sex Assigned at Not on file 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 Lomax. (Per staff message from Lay) documented in this encounter Plan of Treatment Upcoming Encounters Date Type Department Care Team (Late st Contact Info) Description 12/19/2024 1:30 PM CDT Office Visit [facility] Neurology Clinics [address], [address] [place] [address] Jazmine Moulton APRN [facility] [address] [place] [address] [phone] documented as of this encounter Visit Diagnoses Not on filedocumented in this encounter Care Teams Mechanical Test Engineer Relationship Specialty Start Date End Date Will Douglas MD [facility] [address] [place] [address] PCP - General Family Medicine 05/18/23 07/05/23 Brandon Sin [address] [facility] [address] [place] [phone] PCP - General 07/06/23 Jb Mosquera MD [address] [place], [place] 511[address] Resident Physical Medicine and Rehabilitation 06/15/23 Valentin Alejo MD [address] [place], [place] [phone] Neurology 06/15/23 Jamal Mercado MD [address] [address] Cardiovascular Disease 06/15/23 Gilberto France APRN WARP DYEING VAT TENDER [address] [place] [address] [phone] Assigned Cancer Care Provider 07/06/23 08/04/23 Jori Carrion MD [address] [place] [address] [phone] Assigned Cancer Care Provider 08/05/23 Jamal Mercado MD [address] [address] Assigned Heart and Vascular Provider 08/05/23 Johanny Felton PA-C [address] [place] [address] Assigned Surgical Provider 09/05/23 01/04/24 Jazmine Moulton APRN WARP DYEING VAT TENDER [facility] [address] [place] [address] Nurse Practitioner Psychiatry & Neurology Vascular Neurology 10/01/23 Jazmine Moulton APRN WARP DYEING VAT TENDER [facility] [address] [place] [address] Assigned Surgical Provider 01/05/24 documented as of this encounter
[2024-06-23 12:18] LABS: Slide Review Reflex No
--- OUTSIDE RECORDS SUMMARY | 2024-06-23 12:18 | XMS_ITS | Encounter Summary ---
Author Organization [facility] Address [address] [place] [address] Care Team Providers Care Rn Medicare Name Role Phone Miracle Tucker M.D. Primary Care Provider +1- [phone] Reason for Referral * Outpatient (Routine) - Authorized Specialty Diagnoses / Procedures Referred By Angelina t Referred To Contact Emergency Medicine Diagnoses Juan Guido APRN, C.N.P., D.N.P. [address] [place] [phone] Phone: tel: fax: [facility] Region Referral ID Status Reason Start Date Expiration Date V isits Requested Visits Authorized [id number] Authorized 06/22/2024 12/22/2025 1 1 Reason for Visit * Reason Comments Rash Rash throughout body and feels weaker Encounter Details Date Type Department Care Team (Late st Contact Info) Description 06/22/2024 9:40 AM CDT - 06/22/2024 10:10 AM CDT Emergency [facility] [address] [place] [phone] Juan San APRN, C.N.P., D.N.P. [address] [place] [phone] Rash (Primary Dx) Discharge Disposition: Home or Self Care Social History Tobacco Use Types Packs/Day Years Used Date Smoking Tobacco: Former Cigarettes 0 08/27/1957 - 02/13/1964 Smokeless Tobacco: Never Alcohol Use Standard Drinks/Week Comments Yes 5 (1 standard drink = 0.6 oz pur e alcohol) [facility] Utilities Answer Date Recorded In the past 12 months has e Omnid[employer], gas, oil, or water [employer] threatened to shut off services in your home? No 11/30/2023 Humiliation, Afraid, Rape, and Kick questionnair e Answer Date Recorded Within the last year, have y ou been afraid of your partner or ex-partner? No 11/30/2023 Within the last year, have y ou been humiliated or emotionally abused in other ways by your partner or ex-partner? No Within the last year, have y ou been kicked, hit, slapped, or otherwise physically hurt by your partner or ex-partner? No 11/30/2023 Within the last year, have y ou been raped or forced to have any kind of sexual activity by your partner or ex-partner? No 11/30/2023 Social Connection and Isolat ion Panel [NHANES] Answer Date Recorded In a typical week, how many times do you talk on the phone with family, friends, or neighbors? More than three times a week 05/14/2021 How often do you get togethe r with friends or relatives? More than three times a week 05/14/2021 How often do you attend chur ch or voodoo services? More than 4 times per year 05/14/2021 Do you belong to any clubs o r organizations such as episcopal groups, unions, fraternal or athletic groups, or school groups? Yes 05/14/2021 How often do you attend meet ings of the clubs or organizations you belong to? More than 4 times per year 05/14/2021 Are you , , di vorced, , never , or living with a partner? 05/14/2021 AUDIT-C Answer Date Recorded Q1: How often do you have a drink containing alc ohol? 2-3 times a week 05/14/2021 Q2: How many drinks containi ng alcohol do you have on a typical day when you are drinking? 1 or 2 05/14/2021 Q3: How often do you have si x or more drinks on one occasion? Never 05/14/2021 Overall Financial Resource Strain (CARDIA) Answe r Date Recorded How hard is it for you to pa y for the very basics like food, housing, medical care, and heating? Not hard at all 09/10/2022 PHQ-2 Answer Date Recorded PHQ-2 Score 0 04/19/2024 [facility] - Occupational Stress Questionnaire Answer Date Recorded Do you feel stress - tense, restless, nervous, or anxious, or unable to sleep at night because your mind is troubled all the time - these days? Not at all 05/14/2021 Exercise Vital Sign Answer Date Recorde d On average, how many days pe r week do you engage in moderate to strenuous exercise (like a brisk walk)? 5 days 11/30/2023 On average, how many minutes do you engage in exercise at this level? 30 min 11/30/2023 Hunger Vital Sign Answer Date Recorded Within the past 12 months, y ou worried that your food would run out before you got the money to buy more. Never true 11/30/19 24 Within the past 12 months, t he food you bought just didn't last and you didn't have money to get more. Never true 11/30/2023 PRAPARE - Transportation Answer Date Re corded In the past 12 months, has l ack of transportation kept you from medical appointments or from getting medications? No 11/13 In the past 12 months, has l ack of transportation kept you from meetings, work, or from getting things needed for daily living? No 11/30/2023 Depression Answer Date Recor ded PHQ-9 Total Score (max 27) 1 04/19 Nutrition Answer Date Recorded On average, how many serving s of fruits and vegetables do you eat per day (serving size is equal to 1 cup or approximately the size of a tennis ball)? 0-2 11/30/2023 Dental Answer Date Recorded Dental: Regular Dentist Yes 05/03/19 21 Employment Answer Date Recorded Employment status Retired 11/30/2023 Housing Stability Answer Date Recorded What is your living situation today? I have a st [place] place to live 11/30/2023 Education Answer Date Recorded What is the highest level of school you have completed or the highest degree you have received? Doctorate 08/17/2018 Sex and Gender Information Value Date Recorded Sex Assigned at Male 07/29/2017 9:17 PM CDT Legal Sex Male 10:28 AM MANAGER AGENCY Gender Identity Male 07/29/2017 9:17 PM CDT Sexual Orientation Straight 07/29/2017 9: 17 PM CDT Occupation Industry Job Start Date Job End Date Not on file Not on file Not on file Not on file documented as of this encounter Last Filed Vital Signs Vital Sign Reading Time Taken Comments Blood Pressure 118/70 06/22/2024 9:48 AM CDT Pulse 78 06/22/2024 9:48 AM CDT Temperature 36.6 C (97.9 F) 06/22/2024 9:48 AM CDT Respiratory Rate 18 06/22/2024 9:48 AM CDT Oxygen Saturation 94% 06/22/2024 9:48 AM CDT Inhaled Oxygen Concentration - - Weight 93.2 kg (205 lb 7.5 oz) 06/22/2024 9:51 A M CDT Height - - Body Mass Index 29.12 11/30/2023 10:00 AM CDT documented in this encounter Discharge Instructions * Discharge Instructions* Juan San APRN, C.N.P., D.N.P. - 06/22/2024 10:07 AM CDT Stop the bupropion or Wellbutrin. Start taking the prednisone 40 mg for 5 days. Started today. If you are rash isn't improved or it gets worse return to the emergency department otherwise follow-up in 2 weeks. If you develop any worsening symptoms return to the emergency department. If you do have trouble sleeping on the prednisone you can do 1 or 2 tablets of Benadryl at nighttime. Thank you for utilizing [facility] for your care! documented in this encounter Medications at Time of Discharge aspirin 325 mg tablet Take 325 mg by mouth daily. In the evening atorvastatin (Lipitor) 40 mg tablet Take 1 tablet (40 mg total) by mouth every evening. 90 tablet 3 01/19/2024 01/18/2025 buPROPion XL (Wellbutrin XL) 150 mg 24 hr tablet Take 1 tablet (150 mg total) by mouth every morning. 90 tablet 3 06/09/2024 polyethylene glycol 3350 (MIRALAX ORAL) Take 17 g by mouth daily. 06/15/2023 predniSONE (Deltasone) 20 mg tablet Take 2 tablets (40 mg total) by mouth daily for 5 days. Take in the morning with food. 10 tablet 06/22/2024 10:17 AM CDT 06/22/2024 06/27/2024 documented as of this encounter ED Notes * Juan San APRN, C.N.P., D.N.P. - 06/22/2024 10:10 AM CDT Images from the original note were not included. CHIEF COMPLAINT/REASON FOR VISIT Rash (Rash throughout body and feels weaker) HISTORY OF PRESENT ILLNESS Patient with a past medical history of stroke presents to the emergency department with complaints of a rash. Patient has been more depressed lately, so the first week of June he started on Wellbutrin. He is taking Wellbutrin without any difficulties. And on Wednesday he developed this macular papular rash small patch on his back. He felt a little bit more weak than usual. Denies any fever, chills,sweats. The rash has progressively spread and now his entire back, trunk, and the top of his head. Patient states the rash is not itchy. He is not sleeping well at night. He is also complaining of some knee pain after walking. Patient so just mentioned this but they do not want this worked up. Concerning the rash there has been no new products at home including laundry soap, soap, jewelry, colognes, close, bed sheets etc.. The only nidus for this rash is the Wellbutrin. History provided by: Patient and significant other seismic interpreter needed/used: no REVIEW OF SYSTEMS Constitutional: Negative for chills, diaphoresis, fatigue and fever. HENT: Negative for sinus pressure and sore throat. Respiratory: Negative for cough, chest tightness and shortness of breath. Cardiovascular: Negative for chest pain. Gastrointestinal: Negative for abdominal pain, constipation, diarrhea, nausea and vomiting. Genitourinary: Negative for dysuria, frequency and urgency. Musculoskeletal: Negative for arthralgias and myalgias. Skin: Positive for rash. Neurological: Positive for weakness. Negative for dizziness and headaches. Hematological: Negative for adenopathy. Does not bruise/bleed easily. All other systems reviewed and are negative. Allergies Reviewed in medical record Current Medications Reviewed in Medical Record. PAST HISTORY Medical Medical History[1] Problem List[2] Surgical Surgical History[3] Family Reviewed in Medical Record Social History Social History Tobacco Use Smoking status: Former Current packs/day: 0.00 Types: Cigarettes Start date: 08/27/1957 Quit date: 02/13/1964 Years since quittin.3 Smokeless tobacco: Never Substance Use Topics Alcohol use: Yes Alcohol/week: 5.0 standard drinks of alcohol Types: 5 Standard drinks or equivalent per week Social History Substance and Sexual Activity Drug Use No OBJECTIVE Initial Vital Signs / Weights Initial Vitals Temperature 06/22/24 0948 36.6 ??C Pulse Rate 06/22/24 0948 78 Heart Rate -- Resp Rate 06/22/24 0948 18 Blood Pressure 06/22/24 0948 118/70 SpO2 06/22/24 0948 94 % Pain Score 06/22/24 0951 0 - No pain Wt Readings from Last 3 Encounters: 06/22/24 93.2 kg 06/09/24 93.2 kg 04/19/24 93.8 kg PHYSICAL EXAMINATION Constitutional: Nursing note and vitals reviewed. No distress. HENT: Mouth/Throat: Oropharynx is clear and moist. Mucous membranes are moist. Eyes: Conjunctivae and EOM are normal. Pupils are equal, round, and reactive to light. Neck: Neck supple. Cardiovascular: Normal rate and regular rhythm. Pulses are strong and palpable. No murmur heard.Capillary refill: takes less than 3 seconds Pulmonary/Chest: Effort normal. No respiratory distress. Musculoskeletal: General: Normal range of motion. Cervical back: Normal range of motion and neck supple. Lymphadenopathy: He has no cervical adenopathy. Neurological: Alert and oriented to person, place, and time. Skin: Skin is warm, dry and intact. Patient has a macular papular rash but more papular in nature on his entire back, trunk front, and the top of his head. It is nonpruritic. No excoriations. Not warm to touch. Psychiatric: He has a normal mood and affect. DIAGNOSTICS Procedures none See separate procedure note. ED COURSE ED Course as of 06/22/24 1023 Kristie Jun 22, 2024 [id number] I performed my initial evaluation of the patient. We discussed Emergency Department course including testing, treatment, and potential disposition based on findings. Final Diagnoses: as of 06/22/24 1023 Rash INTERVENTIONS Medications - No data to display MEDICAL DECISION MAKING Assessment and Plan Patient presents to the emergency department with complaints of a body rash. Symptoms started roughly 2 weeks after starting Wellbutrin. It is not itchy. Patient is fully immunized. Denies any fever,chills, sweats. Denies any viral exanthem prior to the rash developing. He states he feels a littlebit more weak than usual. He is status post stroke. No new products at home. Differential diagnosis for rash could include but is not limited to dermaphyte infestation, atopic dermatitis, allergic dermatitis, eczema, psoriasis or drug reaction. Based on my clinical examination I feel this rash is caused from etiology is uncertain but more than likely it is from Wellbutrin. I do not suspect cellulitis, sepsis, anaphylaxis or allergic reaction, do not suspect a zoonotic infection, SJS or TEN, toxic shock or any other serious acute pathology today. There are no worrisome features or systemic symptoms associated with this rash. Patient will be placed on 40 mg of prednisone once a day for 5 days. I told him to stop the Wellbutrin. He should follow-up in 2 weeks. He was given strict return precautions to the emergency department. He looked well, nontoxic, and was discharged with his in no acute distress. Patient and/or caregiver was given red flag signs & symptoms that would require immediate followup or return to the ED. . DIFFERENTIAL DIAGNOSES As above. PROBLEMS ADDRESSED THIS VISIT As above. Care is significantly affected by the following Social Determinants of Health: none. I reviewed the following external records: primary care records, prior outpatient labs, prior outpatient radiology tests and inpatient records. The following tests were considered but ultimately not performed: none. Escalation of care, including admission/observation, considered: none. DIAGNOSIS Final diagnoses: [R21] Rash DISPOSITION Home or Self Care DISCHARGE/TRANSFER VITAL SIGNS Vitals: 06/22/24 0948 BP: 118/70 Pulse: 78 Resp: 18 Temp: 36.6 ??C SpO2: 94% ED DISCHARGE MEDS ED Prescriptions Medication Sig Dispense Start Date End Date Auth. Provider predniSONE (Deltasone) 20 mg tablet Take 2 tablets (40 mg total) by mouth daily for 5 days. Take inthe morning with food. 10 tablet 06/22/2024 06/27/2024 Juan San APRN, C.N.P., D.N.P. FOLLOW UP Consults and Follow-ups to Schedule POST ED VISIT Family Medicine Jul 06, 2024 [facility] an [facility]. Region[facility] ED Visit F/U Specialty?: Family Medicine Contact Information for Follow-ups Brandon Sin M.D. 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 ARTHROSCOPIC REPAIR OF ROTATOR CUFF N/A 08/28/1987 Arthroscopy, shoulder, surgical; with rotator cuff repair.. COLONOSCOPY N/A 09/02/2017 Procedure: COLONOSCOPY; Surgeon: Tito Campo M.D.; Location: [facility] DECOMPRESSION POSTERIOR LUMBAR AND FUSION Posterior 08/02/2018 Procedure: Instrumentation removal Revision decompression, fusion L2-5. TLIF L 2-3; Surgeon: Edwin Torres M.D.; Location: [facility] OR ENDOSCOPIC CARPAL TUNNEL RELEASE Right 05/21/2021 Procedure: ENDOSCOPIC CARPAL TUNNEL RELEASE.; Surgeon: Jazmine Macias M.D.; Location: [facility] OR ENDOSCOPIC CARPAL TUNNEL RELEASE Left 07/02/2021 Procedure: ENDOSCOPIC CARPAL TUNNEL RELEASE.; Surgeon: Jazmine Macias M.D.; Location: [facility] OR HAND FINGER A1 BURAK TRIGGER RELEASE Left 06/27/2014 Left hand finger A1 burak trigger release. LAMINOTOMY N/A 08/28/1977 Laminotomy (hemilaminectomy), with decompression of nerve root(s), including partial facetectomy, foraminotomy and/or excision of herniated intervertebral disc, including open and endoscopically-assisted approaches; 1 interspace, lumbar OTHER SURGICAL HISTORY Rotar Cuff SPINE SURGERY 1976 Juan San APRN, C.N.P., D.N.P. 06/22/24 1023 documented in this encounter Plan of Treatment Upcoming Encounters Date Type Department Care Team (Late st Contact Info) Description 06/24/2024 2:00 PM CDT Office Visit Department of Family Medicine, [facility], in [address] [phone] Provider, Rick Placeholder Discharge Disposition: Home or Self Care 06/27/2024 3:00 PM CDT Clinical Support Department of Rehabilitation Services in [address] [phone] Miracle Tucker M.D. [address] [place] [phone] Sultana Reid O.T., O.T.[place] [address] [place] [phone] 07/04/2024 3:00 PM CDT Clinical Support Department of Rehabilitation Services in [address] [phone] Miracle Tucker M.D. [address] [place] [phone] Sultana Reid O.T., O.TJunie [address] [place] [phone] 07/10/2024 2:00 PM CDT Office Visit Department of Family Medicine, [facility], in [address] [phone] Brandon Sin M.D. [address] [place] [phone] Discharge Disposition: Home or Self Care 07/11/2024 3:00 PM CDT Clinical Support Department of Rehabilitation Services in [address] [phone] Miracle Tucker M.D. [address] [place] [phone] Sultana Reid O.T., O.TJunie [address] [place] [phone] Scheduled Referrals Name Type Priority Associated Diagnoses Orde r Schedule POST ED VISIT Family Medicine Outpatient Referral Routine Rash Expected: 07/06/2024, Expires: 09/21/2025 documented as of this encounter Visit Diagnoses Diagnosis Rash- Primary documented in this encounter Additional Health Concerns Assessment Noted Time PHQ-9 Depression Total Score: 1 04/19/19 25 2:25 PM MANAGER AGENCY documented as of this encounter Care Teams Rn Medicare Relationship Specialty Start Date End Date Miracle Tucker M.D. [address] [place] [phone] PCP - General 07/30/23 [facility] Dental Dentistry 11/30/23 [facility] Dental Dentistry 11/30/23 documented as of this encounter
--- OUTSIDE RECORDS SUMMARY | 2024-06-23 12:18 | XMS_ITS | Encounter Summary ---
Author Organization [facility] Address [address] [place] [address] Care Team Providers Care Case Folder Name Role Phone Miracle Tucker M.D. Primary Care Provider +1- [phone] Reason for Visit * Reason Onset Date Comments Rash 06/22/2024 Encounter Details Date Type Department Care Team (Late st Contact Info) Description 06/22/2024 Nurse Triage Department of Family Medicine, [facility], in [address] [phone] Bita Kwok, R.N. [address] [place] [phone] Rash Social History Tobacco Use Types Packs/Day Years Used Date Smoking Tobacco: Former Cigarettes 0 08/27/1957 - 02/13/1964 Smokeless Tobacco: Never Alcohol Use Standard Drinks/Week Comments Yes 5 (1 standard drink = 0.6 oz pur e alcohol) [facility] Utilities Answer Date Recorded In the past 12 months has e electric, gas, oil, or water company threatened to shut off services in your [...] week 05/14/2021 How often do you attend [facility] or judaism services? More than 4 times per year 05/14/2021 Do you belong to any clubs o r organizations such as temple groups, unions, fraternal or athletic groups, or [...] Answer Date Recorded PHQ-2 Score 0 04/19/2024 [facility] - Occupational Stress Questionnaire Answer Date Recorded [...] your living situation today? I have a [facility] place to live 11/30/2023 Education Answer Date Recorded What is the highest level of school you have completed or the highest degree you have received? Doctorate 08/17/2018 Sex and Gender Information Value Date Recorded Sex Assigned at Male 07/29/2017 9:17 PM CDT Legal Sex Male 10:28 AM FLOAT REMOVER Gender Identity Male 07/29/2017 9:17 PM CDT Sexual Orientation Straight 07/29/2017 9: 17 PM CDT Occupation Industry Job Start Date Job End Date Not on file Not on file Not on file Not on file documented as of this encounter Miscellaneous Notes * Telephone Encounter - Bita Kwok RVickiNVicki - 06/22/2024 8:56 AM CDT Chief Complaint / Reason for Call Patient is a 83 y.o. male calling regarding Rash. Assessment Concern: Patient has a rash that started a few nights ago. The rash is on the head, face, and back.He is tired, has knee pain, and a hoarse voice. Home cares tried: No home cares identified. Calling to request: Recommendations The recommended disposition is Go to ED Now (or PCP Triage). Caller declined PCP triage and will goto the ED for evaluation. Reason for Disposition Joint pain or swelling Protocols used: Rash or Redness - Sjehjhcjdy-Ktcrt-DI Care Advice Patient/Caregiver understands and will follow care advice?: Yes, able to teach back Rash or Redness - Usmalwmwmq-Vzyln-AF Nurse Bita Flowers Jun 22, 2024 09:09 AM Care Advice GO TO ED documented in this encounter Plan of Treatment Upcoming Encounters Date Type Department Care Team (Late st Contact Info) Description 06/24/2024 2:00 PM CDT Office Visit Department of Family Medicine, [facility], in [address] [phone] Provider, Rick Placeholder Discharge Disposition: Home or Self Care 06/27/2024 3:00 PM CDT Clinical Support Department of Rehabilitation Services in [address] [phone] Miracle Tucker M.D. [address] [place] [phone] Sultana Reid O.T., [place] [address] [place] [phone] 07/04/2024 3:00 PM CDT Clinical Support Department of Rehabilitation Services in [address] [phone] Miracle Tucker M.D. [address] [place] [phone] Sultana Reid O.T., O.TJunie [address] [place] [phone] 07/10/2024 2:00 PM CDT Office Visit Department of Family Medicine, [facility], in [address] [phone] Brandon Sin M.D. [address] [place] [phone] Discharge Disposition: Home or Self Care 07/11/2024 3:00 PM CDT Clinical Support Department of Rehabilitation Services in [address] [phone] Miracle Tucker M.D. [address] [place] [address] [phone] Sultana Reid O.T., O.TJunie [address] [place] [phone] documented as of this encounter Visit Diagnoses Not on filedocumented in this encounter Additional Health Concerns Assessment Noted Time PHQ-9 Depression Total Score: 1 04/19/19 25 2:25 PM FLOAT REMOVER documented as of this encounter Care Teams Case Folder Relationship Specialty Start Date End Date Miracle Tucker M.D. [address] [place] [address] [phone] PCP - General 07/30/23 [facility] Dental Dentistry 11/30/23 [facility] Dental Dentistry 11/30/23 documented as of this encounter
--- OUTSIDE RECORDS SUMMARY | 2024-06-23 12:18 | XMS_ITS | Encounter Summary ---
Author Organization [facility] Address [address] [place] [address] Care Team Providers Care Senior Financial Reporting Analyst Name Role Phone Jb Mosquera MD Unavailable [phone] Valentin Alejo MD Unavailable Jamal Mercado MD Unavailable [phone] Brandon Sin Primary Care Provider [phone] Jori Carrion MD Unavailable [phone] Jamal Mercado MD Unavailable [phone] Jazmine Moulton APRN CLINICAL DATA PROGRAMMER Unavailable [phone] Jazmine Moulton APRN CLINICAL DATA PROGRAMMER Unavailable [phone] Encounter Details Date Type Department Care Team (Latest Contact Info) Description 06/07/2024 Travel Social History Tobacco Use Types Packs/Day Years Used Date Smoking Tobacco: Never Passive Smoke Exposure: Never Smokeless Tobacco: Never Alcohol Use Standard Drinks/Week Comments Yes 0 (1 standard drink = 0.6 oz pur e alcohol) PHQ-2 Answer Date Recorded PHQ-2 Score 2 06/07/2024 Adolescent Education Answer Date Record ed Getting School Help Needed Not on file 05/15 Sex and Gender Information Value Date Recorded Sex Assigned at Not on file 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 Gender Identity Not on file Sexual Orientation Not on file documented as of this encounter Plan of Treatment Upcoming Encounters Date Type Department Care Team (Late st Contact Info) Description 12/19/2024 1:30 PM CDT Office Visit [facility] [place] [address] [place] [address], [address] [place] [phone] Jazmine Moulton APRN [facility] NEUROLOG[facility] [address] [place], [place] [address] documented as of this encounter Visit Diagnoses Not on filedocumented in this encounter Care Teams Senior Financial Reporting Analyst Relationship Specialty Start Date End Date Brandon Sin [address] [place] [phone] PCP - General 07/06/23 Jb Mosquera MD [address] [place], [place] [phone] Resident Physical Medicine and Rehabilitation 06/15/23 Valentin Alejo MD [address] [place] [id number] Neurology 06/15/23 Jamal Mercado MD [address] [place] [phone] Cardiovascular Disease 06/15/23 Jori Carrion MD [address] [facility], [address] [place], [place] [address] Assigned Cancer Care Provider 08/05/23 Jamal Mercado MD [address] [place] [phone] Assigned Heart and Vascular Provider 08/05/23 Jazmine Moulton APRN CLINICAL DATA PROGRAMMER NEUROLOGY STROKE [facility] NEUROCRITICAL CARE [address] [place] [address] [phone] Nurse Practitioner Psychiatry & Neurology Vascular Neurology 10/01/23 Jazmine Moulton APRN CLINICAL DATA PROGRAMMER NEUROLOGY STRO[facility] NEUROCRITICAL CARE [address] [place] [address] [phone] Assigned Surgical Provider 01/05/24 documented as of this encounter
--- OUTSIDE RECORDS SUMMARY | 2024-06-23 12:18 | XMS_ITS | Clinical Summary ---
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 Gender Identity Not on file Sexual Orientation Not on file Last Filed Vital Signs Vital Sign Reading Time Taken Comments Blood Pressure 101/61 11/04/2023 9:57 AM CDT Pulse 73 11/04/2023 9:57 AM CDT Temperature - - Respiratory Rate - - Oxygen Saturation 95% 11/04/2023 9:57 AM CDT Inhaled Oxygen Concentration - - Weight - - Height - - Body Mass Index - - Plan of Treatment Health Maintenance Due Date Last Done Comments Tdap 1949 Depression screening for age 12+ 1950 BMI (ht and wt on same day) for age 18+ 1956 Tetanus booster 1958 Pneumococcal series for age 50+ (1 of 1 - PCV) 1988 Zoster (shingles) series for age 50+ (1 of 2) 1988 RSV vaccine for adults or (1 - 1-dose 75+ series) 2013 COVID-19 vaccine series ( season) 2023 11/29/2022, 12/31/2021, 07/14/2021, Additional history exists Influenza Vaccine (Season Ended) 2024 Insurance MEDICARE PART B HB ONLY [employer] MED[employer]ARE [employer]VANTAGE Care Teams Padding Gluer Relationship Specialty Start Date End Date Radha Henao MD [address] [place] [phone] PCP - General Pediatric 06/17/23
--- OUTSIDE RECORDS SUMMARY | 2024-06-23 12:18 | XMS_ITS | Encounter Summary ---
Author Organization [facility] Address [address] [place] [address] Care Team Providers Care Hvac Design Engineer Name Role Phone Miracle Tucker M.D. 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 [address] [place] [phone] Phone: tel: fax: [facility] Region Referral ID Status Reason Start Date Expiration Date Visits Re quested Visits Authorized [id number] Closed 05/31/2024 08/31/2025 1 1 Encounter Details Date Type Department Care Team (Latest Contact Info) Description 06/19/2024 3:00 PM CDT Comprehensive Visit Department of Rehabilitation Services in [address] [phone] Miracle Tucker M.D. 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 - 06/19/2024 3:00 PM CDT Occupational Therapy Outpatient Evaluation/Treatment By co-signing this note, the provider certifies the therapy being provided to this patient is reasonable and necessary for the diagnosis or treatment of this patient. SUBJECTIVE Patient's Name: Charles Douglas Referring Provider: Miracle Tucker M.D. Visit Diagnosis: 1. 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 Onset Date: 05/18/23 Payor: [facility] / Plan: [facility] FOR I AM ATS HMO / Product Type: HMO / Visit Count: 1 PERTINENT MEDICAL / SURGICAL HISTORY: Problem List[1] Surgical History[2] Patient presents to outpatient occupational therapy for evaluation of symptoms including: S/p CVA Overall patient reports status is worsening . History of Present Illness:Patient had a stroke on 05/18/23 which affected his R side. Patient had inpatient and outpatient OT, but has since lost some functional use of the R hand. Aggravating Factors: decreased use of the R hand for ADLs Relieving Factors: rest Previous Treatments: Occupational Therapy Prior Function/Occupational Profile: Prior Mobility/Functional Transfers Level of [place]: Modified independent Previous Transfer/Mobility Assistance Comments: Patient uses a STC for ambulation Gait Devices/Wheelchair Used: Cane Prior Function/Occupational Profile Dominant Hand: Right Lives With: Spouse Receives Help From: Family ADL Assistance: Independent IADL/Homemaking Assistance: Independent Driving: Does not drive Driving Comments: Patient has not driven since the stroke Occupational Role: Retired 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 Patient Comments: Patient reports it just always feels the same, numb. Fall Risk (65 and older) Fall in the last 12 months: No Are you fearful of falling?: No OBJECTIVE REVIEW OF SYSTEMS PHYSICAL EXAM Pain: No pain noted Patient presents with FOTO functional status score of 58 (MCII: and MDC: ) indicating general function at stage . The risk adjusted functional status score is 55. Patient is predicted to have 10 points of functional status change in 17 visits over 65 days based on normative data. Neuromuscular Reeducation: Coordination Retraining Fine Motor: Patient had increased difficulty holding a pen in his R hand to legibly write his name multiple times. His right hand fatigued quickly when signing his first and last name 6 times. Patient was also unable to use 3 point pinch to picker feeder coins off the table, having to slide them off the edge of the table then push them part way through a large slot. In Hand Manipulation: Patient was unable to complete in hand manipulation of half marbles without dropping them. Patient had moderate difficulty moving rectangle and circular blocks, using in hand manipulation to turn them over without using the table or other blocks to turn them and place them back in the correct slot. Patient scored 52 seconds, dropping two pegs with his R hand, 32 seconds withthe L hand for the 9 hole peg test. Ortho Exam R gender studies professor strength 26 kg, L 30 kg R 3 point pinch 3 kg, L 7 kg R lateral pinch 8 kg, L 8 kg Cognition Cognitive assessment method: Therapist observations, Caregiver/family report Arousal/Alertness: Appropriate responses to stimuli Attention: Impairments noted Divided: Mild Alternating: Mild Initiation: No difficulty with initiation Following Commands: One Step Commands Memory: Impairments noted Short-term Memory: Mild Immediate Memory: Mild Safety/Judgment: Impairments noted Self-monitoring/Self-correct Consistently: Mild Insight/Awareness of Deficits: Mild Cognition Comments: Patient reports parts of his history that states are not accurate by shaking her head with specific answers such as driving, and reporting he is doing more activities than heis. Home Exercise Program/Education: Therapy putty, increased use of the R hand Assessment Clinical Impression: Patient presents to occupational therapy with signs and symptoms consistent with L sided CVA with R hand impairments. Impairments: R hand coordination, strength Functional Deficits: decreased ADLs Rehab Potential: Patient has good potential to achieve established occupational therapy goals within the time frame outlined below, provided active participation in the occupational therapy treatmentplan and home program. Comorbid Conditions: Arthritis, Cognitive/memory disorder, Cerebrovascular accident Personal Factors: Age Occupational Profile and History review: Expanded Performance Deficits: 1 - 3 performance deficits Evaluation Complexity: Moderate Functional Goals and Timeframes: OT Goal #1: Patient will increase fine motor coordination of the R hand in order to increase his ability to legibly sign his name and write lists/ notes as needed. OT Goal #1 to be achieved by: 08/01/24 OT Goal #2: Patient will increase R gender studies professor strength by 2 kg in order to open jars and hold items in his hand to assist with simple meal prep. OT Goal #2 to be achieved by: 08/01/24 OT Goal #3: Patient will be educated and Mod I with HEP in order to maintain R gender studies professor strength for functional ADL activities with Mod I. OT Goal #3 to be achieved by: 08/01/24 Plan Patient was educated regarding evaluative findings, diagnosis, prognosis, potential risks and benefits of rehabilitation interventions. A collaborative effort was used to establish goals and plan of care. The patient was informed of the right to make decisions regarding care, including refusal of examination or treatment or selection of services from another provider if desired. The treatment plan may be progressed or modified based upon the patient's response to treatment. Treatment Plan: Start of Plan of Care: 06/20/2024 Number of Visits: up to 12 visits OT Duration: 60 days OT Frequency: One-time visit Treatment interventions may include: Treatment Interventions: Neuromuscular re-education, Therapeutic functional activity. Plan for next session: increase ROM and strength of the R hand for functional ADL and IADL activities. Plan: Plan of care initiated OT Plan Comments: Patient will benefit from neuro-reducation to increase coordination and fine motor skills of the R hand to increase function. Occupational Therapy Attestation Statement: Patient agrees with the plan of care and goals. 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 ARTHROSCOPIC REPAIR OF ROTATOR CUFF N/A 08/28/1987 Arthroscopy, shoulder, surgical; with rotator cuff repair.. COLONOSCOPY N/A 09/02/2017 Procedure: COLONOSCOPY; Surgeon: Tito Campo M.D.; Location: [facility] GI LAB DECOMPRESSION POSTERIOR LUMBAR AND FUSION Posterior 08/02/2018 Procedure: Instrumentation removal Revision decompression, fusion L2-5. TLIF L 2-3; Surgeon: Edwin Torres M.D.; Location: [facility] ROMB OR ENDOSCOPIC CARPAL TUNNEL RELEASE Right 05/21/2021 Procedure: ENDOSCOPIC CARPAL TUNNEL RELEASE.; Surgeon: Jazmine Macias M.D.; Location: [facility] OR ENDOSCOPIC CARPAL TUNNEL RELEASE Left 07/02/2021 Procedure: ENDOSCOPIC CARPAL TUNNEL RELEASE.; Surgeon: Jazmine aMcias M.D.; Location: [facility] OR HAND FINGER A1 BURAK TRIGGER RELEASE Left 06/27/2014 Left hand finger A1 burak trigger release. LAMINOTOMY N/A 08/28/1977 Laminotomy (hemilaminectomy), with decompression of nerve root(s), including partial facetectomy, foraminotomy and/or excision of herniated intervertebral disc, including open and endoscopically-assisted approaches; 1 interspace, lumbar OTHER SURGICAL HISTORY Rotar Cuff SPINE SURGERY 1976 Cosigned by Miracle Tucker M.D. at 06/20/2024 10:12 AM CDT documented in this encounter Plan of Treatment Upcoming Encounters Date Type Department Care Team (Late st Contact Info) Description 06/24/2024 2:00 PM CDT Office Visit Department of Family Medicine, [facility], in [address] [phone] ProviderRick Discharge Disposition: Home or Self Care 06/27/2024 3:00 PM CDT Clinical Support Department of Rehabilitation Services in [address] [phone] Miracle Tucker M.D. [address] [place] [phone] Sultana Reid O.T., O.TJunie [address] [place] [phone] 07/04/2024 3:00 PM CDT Clinical Support Department of Rehabilitation Services in [address] [phone] Miracle Tucker M.D. [address] [place] [phone] Sultana Reid O.T., O.T.[place] [address] [place] [phone] 07/10/2024 2:00 PM CDT Office Visit Department of Family [facility], [facility], in [address] [phone] Brandon Sin M.D. [address] [place] [phone] Discharge Disposition: Home or Self Care 07/11/2024 3:00 PM CDT Clinical Support Department of Rehabilitation Services in [address] [phone] Miracle Tucker M.D. 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 [address] [place] [phone] PCP - General 07/30/23 [facility] Dental Dentistry 11/30/23 [facility] Dental Dentistry 11/30/23 documented as of this encounter
--- OUTSIDE RECORDS SUMMARY | 2024-06-23 12:18 | XMS_ITS | Clinical Summary ---
Author Organization [facility] Address [address] [place] [address] Care Team Providers Care Yard Jacker Name Role Phone Jb Mosquera MD Unavailable [phone] Valentin Alejo MD Unavailable Jamal Mercado MD Unavailable [phone] Brandon Sin Primary Care Provider [phone] Jori Carrion MD Unavailable [phone] Jamal Mercado MD Unavailable [phone] Jazmine Moulton APRN GRAPHITE PAN DRIER TENDER Unavailable [phone] Jazmine Moulton APRN GRAPHITE PAN DRIER TENDER Unavailable [phone] Allergies Active Allergy Reactions Criticality Noted Date Comments Morphine Sulfate Anaphylaxis High 06/16/2012 Pt said his lungs shut martell Medications polyethylene glycol (MIRALAX) 17 GM/Dose powderIndications: Ischemic cerebrovascular accident (CVA) (H) Take 17 g by mouth daily as needed for constipation 510 g 024 Active aspirin (ASA) 325 MG EC tablet Take 1 tablet (325 mg) by mouth daily. 024 Active atorvastatin (LIPITOR) 40 MG tabletIndications: TIA (transient ischemic attack) Take 0.5 tablets (20 mg) by mouth every evening. 90 tablet 1 Active atorvastatin (LIPITOR) 40 MG tabletIndications: TIA (transient ischemic attack) Take 1 tablet (40 mg) by mouth every evening 30 tablet 024 2024 Discontinued(R eorder (No AVS)) sertraline (ZOLOFT) 50 MG tablet Take 50 mg by mouth daily. 024 2024 Discontinued Active Problems Problem Noted Date Diagnosed Date Stroke 06/02/2023 Ischemic cerebrovascular accident (CVA) 05/18/19 24 TIA (transient ischemic attack) 05/16/2023 Encounters Date Type Department Care Team Description 06/07/2024 1:00 PM CDT Office Visit [facility] Neurology [address], [facility] [address] [place] [address] Jazmine Moulton APRN GRAPHITE PAN DRIER TENDER Ischemic cerebrovascular accident (CVA) (H) (Primary Dx); TIA (transient ischemic attack) 06/07/2024 Travel 04/18/[address] 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 Gender Identity Not on file Sexual Orientation Not on file Last Filed Vital Signs Vital Sign Reading Time Taken Comments Blood Pressure 118/70 06/07/2024 1:01 PM CDT Pulse 77 06/07/2024 1:01 PM CDT Temperature 36.7 C (98.1 F) 07/22/2023 1:19 PM CDT Respiratory Rate 16 07/20/2023 11:33 AM CDT Oxygen Saturation 97% 06/07/2024 1:01 PM CDT Inhaled Oxygen Concentration - - Weight 94.3 kg (208 lb) 06/07/2024 1:01 PM CDT Height 180.3 cm (5' 11) 07/22/2023 1:19 PM CDT Body Mass Index 29.01 07/22/2023 1:19 PM CDT Plan of Treatment Upcoming Encounters Date Type Department Care Team (Late st Contact Info) Description 12/19/2024 1:30 PM CDT Office Visit [facility] - [address], [address] [place] [address] Jazmine Moulton APRN [facility] [address] [place], [place] [phone] Health Maintenance Due Date Last Done Comments ADVANCE CARE PLANNING 1938 ANNUAL REVIEW OF HM ORDERS 1938 FALL RISK ASSESSMENT 08/27/2003 DTAP/TDAP/TD IMMUNIZATION (3 - Td or Tdap) 09/18/2018 09/18/2008, 09/18/2008, 04/30/1998 COVID-19 Vaccine ( season) 2024 11/16/2023, 11/29/2022, 12/31/2021, Additional history exists LIPID 05/16/2024 05/17/2023, 05/16/2023 MEDICARE ANNUAL WELLNESS VISIT 11/29/2024 11/30/2023 Pneumococcal Vaccine: 50+ Years Completed 07/16/2014, 06/19/2005 ZOSTER IMMUNIZATION Completed 09/26/2019, 07/26/2019, 06/20/2012 RSV VACCINE Completed 02/11/2023 INFLUENZA VACCINE Completed 11/16/2023, , 12/31/2021, Additional history exists PHQ-2 (once per calendar year) Completed 06/07/2024, 07/06/2023 HPV IMMUNIZATION Aged Out No longer e ligible based on patient's age to complete this topic MENINGITIS IMMUNIZATION Aged Out No l onger eligible based on patient's age to complete this topic Procedures Procedure Name Priority Date/Time Associated Diagnosis Comments LIPID REFLEX TO DIRECT LDL PANEL STAT 05/17/2023 7:42 AM COKE CRUSHER OPERATOR from Last 3 Months or Most Recently Relevant to Health Maintenance Results * (ABNORMAL) Lipid panel reflex to direct LDL (05/17/2023 7:42 AM COKE CRUSHER OPERATOR) Cholesterol 149 <200 mg/dL 05/17/2023 11:25 AM COKE CRUSHER OPERATOR [facility] Triglycerides 272(H) <150 mg/dL 05/17/2023 11:25 AM COKE CRUSHER OPERATOR [facility] Direct Measure HDL 28(L) >=40 mg/dL 05/17/2023 11:25 AM COKE CRUSHER OPERATOR [facility] LDL Cholesterol Calculated 67 <=100 mg/dL 05/17/2023 11:25 AM COKE CRUSHER OPERATOR [facility] Non HDL Cholesterol 121 <130 mg/dL 05/17/2023 11:25 AM COKE CRUSHER OPERATOR [facility] Patient Fasting > 8hrs? No 05/17/2023 11:25 AM COKE CRUSHER OPERATOR [facility] Blood STRUCTURE OF RIGHT HAND / Unknown Venipuncture / Unknown 05/17/2023 7:42 AM COKE CRUSHER OPERATOR 05/17/2023 7:47 AM COKE CRUSHER OPERATOR Narrative [facility] - 05/17/2023 11:25 AM COKE CRUSHER OPERATOR Cholesterol Desirable: <200 mg/dL Triglycerides Normal: Less than 150 mg/dL Borderline High: 150-199 mg/dL High: 200-499 mg/dL Very High: Greater than or equal to 500 mg/dL Direct Measure HDL Female: Greater than or equal to 50 mg/dL Male: Greater than or equal to 40 mg/dL LDL Cholesterol Desirable: <100mg/dL Above Desirable: 100-129 mg/dL Borderline High: 130-159 mg/dL High: 160-189 mg/dL Very High: >= 190 mg/dL Non HDL Cholesterol Desirable: 130 mg/dL Above Desirable: 130-159 mg/dL Borderline High: 160-189 mg/dL High: 190-219 mg/dL Very High: Greater than or equal to 220 mg/dL us Tigist Pringle MD LAB - BLOOD ORDERABLES Fi nal Result [facility] [address] [facility] [address], [address] [place] [address], [place] [phone] LABORATORY [facility] Lab [address] [facility] Lab (1st floor, no room number) [place] [address], [place] [phone] from Last 3 Months or Most Recently Relevant to Health Maintenance Insurance UCARE MEDICARE UCARE MEDICARE Advance Directives For more information, please contact: [phone] * Full Code (Latest Code Status on File) Date Activated Date Inactivated Comments 06/02/2023 3:22 PM 06/16/2023 12:31 PM All basic an d advanced life-sustaining interventions are performed as appropriate Question Answer Comments Code status determined by: Discussion with patie nt/ legal decision maker * Full Code Date Activated Date Inactivated Comments 05/18/2023 10:19 PM 06/02/2023 2:52 PM All basic an d advanced life-sustaining interventions are performed as appropriate Question Answer Comments Code status determined by: Discussion with patie nt/ legal decision maker * Full Code Date Activated Date Inactivated Comments 05/18/2023 9:55 PM 05/18/2023 10:19 PM All basic and advanced life-sustaining interventions are performed as appropriate Question Answer Comments Code status determined by: Discussion with patie nt/ legal decision maker * Full Code Date Activated Date Inactivated Comments 05/16/2023 11:57 PM 05/18/2023 9:30 PM All basic and advanced life-sustaining interventions are performed as appropriate Question Answer Comments Code status determined by: Discussion with patie nt/ legal decision maker Care Teams Yard Jacker Relationship Specialty Start Date End Date Brandon Sin [address] [place] [phone] PCP - General 07/06/23 Jb Mosquera MD [address] [place] [phone] Resident Physical Medicine and Rehabilitation 06/15/23 Valentin Alejo MD [address] [place] [id number] Neurology 06/15/23 Jamal Mercado MD [address] [place] [phone] Cardiovascular Disease 06/15/23 Jori Carrion MD [address] [facility], [address] [place] [address] Assigned Cancer Care Provider 08/05/23 Jamal Mercado MD [address] [place] [phone] Assigned Heart and Vascular Provider 08/05/23 Jazmine Moulton APRN GRAPHITE PAN DRIER TENDER NEUROLOGY [facility] [address] [place] [phone] Nurse Practitioner Psychiatry & Neurology Vascular Neurology 10/01/23 Jazmine Moulton APRN GRAPHITE PAN DRIER TENDER NEUROLOGY [facility] [address] [place] [phone] Assigned Surgical Provider 01/05/24
--- OUTSIDE RECORDS SUMMARY | 2024-06-23 12:18 | XMS_ITS | Encounter Summary ---
Author Organization [facility] Address [address] [place] [address] Care Team Providers Care Auto Body Repairman Name Role Phone Miracle Tucker M.D. Primary Care Provider [phone] Reason for Visit * Speech Pathology (Routine) - Closed Specialty Diagnoses / Procedures Referred By Angelnia rojas Referred To Contact Diagnoses Aphasia Procedures LEGAL EDITOR Speech language evaluate and treat Miracle Tucker M.D. [address] [place] [phone] Phone: tel: fax: [facility] Region Referral ID Status Reason Start Date Expiration Date Visits Re quested Visits Authorized [id number] Closed 03/01/2024 03/01/2025 1 1 Encounter Details Date Type Department Care Team (Latest Contact Info) Description 05/29/2024 12:30 PM CDT Comprehensive Visit Department of Physical Medicine and Rehabilitation in [address] [phone] Miracle Tucker M.D. [address] [place] [phone] Shiloh Lopez CCC-LEGAL EDITOR [address] [place] [phone] Aphasia (Primary Dx) Social History Tobacco Use Types Packs/Day Years Used Date Smoking Tobacco: Former Cigarettes 0 08/27/1957 - 02/13/1964 Smokeless Tobacco: Never Alcohol Use Standard Drinks/Week Comments Yes 5 (1 standard drink = 0.6 oz pur e alcohol) [facility] Utilities Answer Date Recorded In the past 12 months has th e electric, gas, oil, or water company [...] 05/14/2021 How often do you attend chur or bahai services? More than 4 times per year 05/14/2021 Do you belong to any clubs o r organizations such as protestant groups, unions, fraternal or athletic groups, or [...] Answer Date Recorded PHQ-2 Score 0 04/19/2024 [facility] Occupat ional [facility] - Occupational Stress Questionnaire Answer Date [...] your living situation today? [facility] 11/30/2023 Education Answer Date Recorded What is the highest level of school you have completed or the highest degree you have received? 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 Visit Count since Last G-Code: 1 Episode Visit Count: 1 SUBJECTIVE Medical diagnosis: #1 Aphasia History The following portions of the patient's history were reviewed: medical history and surgical history Mr. Charles Douglas is a 83-year old male who presented to the ER on 05/16/2023 with slurred speech and frequent TIA-like symptoms. 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 He experiencedfluctuating dysarthria throughout hospital stay and inpatient rehab program. He was discharged frominpatient rehab on 10/14/2023 and has not had speech therapy since discharging. Today, Mr. Douglas presents for evaluation with his Jone and is pleasant and cooperative with all evaluation activities. He states that he is not sure why [he] is here and feels he is doing pretty well. He states his right side feels behind and that he feels he is in a holding pattern withhis physical and communication skills. 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 Mr. 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 OBJECTIVE General Mr. Douglas was pleasant and cooperative with all evaluation activities. Pain He denies any pain with speech or swallowing. Oral / Motor Not formally assessed, but oral motor function appears to be within normal limits. Motor Speech Not formally assessed, but appears to be within functional limits. Comprehension Not formally assessed. Mr. Douglas appears to have typical comprehension skills and asked clarifyingquestions when necessary. Expression Not formally assessed. Mr. Douglas appears to have typical expressive language skills and conversed independently with his and clinicians. Cognition The Cognitive Linguistic Quick Test (CLQT) is a quick, snapshot assessment of the five cognitive domains needed to fully function as an independent adult. The CLQT can be used with adults aged 18-89 with known or suspected neurological dysfunction. Today, a severity rating for ages 70-89 was used. Cognitive Domain Score Severity Rating Attention 191 4 Memory 124 3 Executive Function 27 4 Language 26 3 Visuospatial Skills 89 4 Clock Drawing 11 4 Composite Severity Rating 18 3.6 *Note: Composite Severity Rating Scale: 4.0 - 3.5 = Within Normal Limits 3.4 - 2.5 = Mild 2.4 - 1.5 = Moderate 1.4 - 1.0 = Severe Mr. Douglas demonstrated relative strengths with attention, executive functioning, and visuospatial tasks. He had more difficulty with memory tasks, particularly auditory memory tasks such as story recall and design memory tasks. Some perseveration noted during generative naming and design generation tasks. His clock drawing had significantly reduced legibility, which was likely caused by hand weakness and using nondominant hand when drawing the numbers/clock hands. Pragmatics Not formally assessed, but pragmatic skills appear to be within normal limits. Assessment Mr. Douglas demonstrated mild difficulties with memory and language tasks during the evaluation, particularly with story recall, generative naming, and design memory. He demonstrated minimal evidence of aphasia today and did not seem to have any difficulty with conversational word-finding or expressive and receptive language throughout the evaluation. 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 Plan Education provided on aphasia and various games/activities for Charles and Jone to try and promote language use in the home outside of conversation. At this time, Charles would benefit from 6 sessions of skilled speech therapy to address aphasia and memory. Short term goals 1) Patient will: demonstrate use of word-finding strategies given minimal auditory/verbal cues with80% accuracy 2) Patient will: demonstrate use of internal memory strategies given min A/V cues with 80% accuracy longterm goals 1) Patient will independently use word-finding and memory strategies to improve communication and maintain independence. Length of session: 60 min Time Spent with Patient Total Duration of Therapy (min): 60 min Cosigned by Shiloh Lopez CCC-LEGAL EDITOR at 06/01/2024 4:34 PM CDT Associated attestation - Shiloh Lopez CCC-SLP - 06/01/2024 4:34 PM CDT Teaching Attestation: I have reviewed the student documentation. We discussed the patient's care indetail and I agree with the assessment & plan. * Shiloh Lopez CCC-SLP - 05/29/2024 12:30 PM CDT Speech therapy Discharge Summary - 1x Only Patient was treated 1 time on 05-29-24 for Speech Therapy focused on cognitive communication deficits s/p CVA. The patient failed to attend or schedule additional visits as indicated in the plan of care established at their initial evaluation. The patient???s current physical / functional status, including the status of all goals set at initial visit, is unknown, as patient discontinued care prior to the planned discharge visit. Home exercise and self-care instruction provided to patient at the initial visit included: Education provided at first visit regarding results and recommendations. Patient verbalized understanding. . documented in this encounter Plan of Treatment Upcoming Encounters Date Type Department Care Team (Late st Contact Info) Description 06/24/2024 2:00 PM CDT Office Visit Department of Family Medicine, [facility], in [address] [phone] Provider, Rick Placeholder Discharge Disposition: Home or Self Care 06/27/2024 3:00 PM CDT Clinical Support Department of Rehabilitation Services in [address] [phone] Miracle Tucker M.D. [address] [place] [phone] Sultana Reid O.T., Adam [address] [place], [place] [address] [phone] 07/04/2024 3:00 PM CDT Clinical Support Department of Rehabilitation Services in [address] [place] [address] Miracle Tucker M.D. [address] [place] [address], [place] [phone] Sultana Reid O.T., Adolph.TJunie [address] [place], [place] [address] [address] 07/10/2024 2:00 PM CDT Office Visit Department of Family Medicine, [facility], in [address] [place] [phone] Brandon Sin M.D. [address] [place] [phone] Discharge Disposition: Home or Self Care 07/11/2024 3:00 PM CDT Clinical Support Department of Rehabilitation Services in [address] [phone] Miracle Tucker M.D. [address] [place] [phone] Sultana Reid O.T., Adolph.TJunie [address] [place] [phone] documented as of this encounter Visit Diagnoses Diagnosis Aphasia- Primary documented in this encounter Additional Health Concerns Assessment Noted Time PHQ-9 Depression Total Score: 1 04/19/19 25 2:25 PM SPACECRAFT SYSTEMS ENGINEER documented as of this encounter Care Teams Auto Body Repairman Relationship Specialty Start Date End Date Miracle Tucker M.D. [address] [phone] PCP - General 07/30/23 [facility] Dental Dentistry 11/30/23 [facility] Dental Dentistry 11/30/23 documented as of this encounter
--- OUTSIDE RECORDS SUMMARY | 2024-06-23 12:18 | XMS_ITS | Encounter Summary ---
Author Organization [facility] Address [address] [place] [address] Care Team Providers Care District Administrative Assistant Name Role Phone Miracle Tucker M.D. 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 [address] [place] [phone] Phone: tel: fax: [facility] Region Referral ID Status Reason Start Date Expiration Date Visits Re quested Visits Authorized [id number] Closed 05/31/2024 08/31/2025 1 1 Reason for Visit * Reason Onset Date Comments Order Request 05/31/2024 OT referral Encounter Details Date Type Department Care Team (Latest Contact Info) Description 05/31/2024 Clinical Communication Department of Family Medicine, [facility], in [address] [phone] Miracle Tucker M.D. [address] [place] [phone] Order Request (OT referral ) Social History Tobacco Use Types Packs/Day Years Used Date Smoking Tobacco: Former Cigarettes 0 08/27/1957 - 02/13/1964 Smokeless Tobacco: Never Alcohol Use Standard Drinks/Week Comments Yes 5 (1 standard drink = 0.6 oz pur e alcohol) [facility] Utilities Answer Date Recorded In the [...] do you attend up health system or scientologist services? More than 4 times per year 05/14/2021 Do you belong to any clubs o r organizations such as faith groups, unions, fraternal or athletic groups, or [...] Answer Date Recorded PHQ-2 Score 0 04/19/2024 [facility] - Occupational Stress Questionnaire Answer Date Recorded [...] your living situation today? I have a [facility] place to live 11/30/2023 Education Answer Date Recorded What is the highest level of school you have completed or the highest degree you have received? 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, in [address] [phone] Provider, Rick Placeholder Discharge Disposition: Home or Self Care 06/27/2024 3:00 PM CDT Clinical Support Department of Rehabilitation Services in [address] [phone] Miracle Tucker M.D. [address] [place] [phone] Sultana Reid O.T., O.T.DVicki [address] [place] [phone] 07/04/2024 3:00 PM CDT Clinical Support Department of Rehabilitation Services [address] [phone] Miracle Tucker M.D. [address] [place] [phone] Sultana Reid O.Noreen, O.T.DVicki [address] [place] [phone] 07/10/2024 2:00 PM CDT Office Visit Department of Family Medicine, [facility], in [address] [phone] Brandon Sin M.D. [address] [place] [phone] Discharge Disposition: Home or Self Care 07/11/2024 3:00 PM CDT Clinical Support Department of Rehabilitation Services in [address] [phone] Miracle Tucker M.D. 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 [address] [place] [phone] PCP - General 07/30/23 [facility] Dental Dentistry 11/30/23 [facility] Dental Dentistry 11/30/23 documented as of this encounter
--- OUTSIDE RECORDS SUMMARY | 2024-06-23 12:18 | XMS_ITS | Encounter Summary ---
Author Organization [facility] Address [address] [place] [phone] Care Team Providers Care Grease Cup Filler Name Role Phone Miracle Tucker M.D. Primary Care Provider [phone]- [phone] Reason for Visit * Reason Comments Toe Pain Has been on Keflex f or same Encounter Details Date Type Department Care Team (Late st Contact Info) Description 05/27/2024 12:03 PM CDT - 05/27/2024 12:22 PM CDT Emergency [facility] [address] [place] [address] [phone] Sg Sherwood APRN, C.N.P., M.S.N. [address] [place] [address] [phone] General Medical Examination Adult (Primary Dx) Discharge Disposition: Home or Self Care Social History Tobacco Use Types Packs/Day Years Used Date Smoking Tobacco: Former Cigarettes 0 08/27/1957 - 02/13/1964 Smokeless Tobacco: Never Alcohol Use Standard Drinks/Week Comments Yes 5 (1 standard drink = 0.6 oz pur e alcohol) [facility] Utilities Answer Date Recorded In [...] week 05/14/2021 How often do you attend [facility] or [facility]ars[facility] services? More than 4 times per year [...] Answer Date Recorded PHQ-2 Score 0 04/19/2024 [facility] - [...] your living situation today? I have a [facility] place to live 11/30/2023 Education Answer Date Recorded What is the highest level of school you have completed or the highest degree you have received? 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 Gender Identity Male 07/29/2017 9:17 PM CDT Sexual Orientation Straight 07/29/2017 9: 17 PM CDT Occupation Industry Job Start Date Job End Date Not on file Not on file Not on file Not on file documented as of this encounter Last Filed Vital Signs Vital Sign Reading Time Taken Comments Blood Pressure 132/68 05/27/2024 12:06 PM CDT Pulse - - Temperature 36.1 C (97 F) 05/27/2024 12:06 PM CDT Respiratory Rate 20 05/27/2024 12:06 PM CDT Oxygen Saturation 95% 05/27/2024 12:06 PM CDT Inhaled Oxygen Concentration - - Weight - - Height - - Body Mass Index - - documented in this encounter Discharge Instructions * Discharge Instructions* Sg Sherwood APRN C.N.P., M.S.N. - 05/27/2024 12:20 PM CDT Your toe are reassuring. No signs of infection are noted at this time. If you develop fevers or chills, swelling of that toe, increasing redness, pus drainage, or pain, you can return to emergency department for further evaluation. If concern regarding ingrown toenail, consider follow up with Podiatry. documented in this encounter Medications at Time of Discharge aspirin 325 mg tablet Take 325 mg by mouth daily. In the evening atorvastatin (Lipitor) 40 mg tablet Take 1 tablet (40 mg total) by mouth every evening. 90 tablet 3 01/19/2024 01/18/2025 polyethylene glycol 3350 (MIRALAX ORAL) Take 17 g by mouth daily. 06/15/2023 documented as of this encounter ED Notes * Sg Sherwood APRN, C.N.P., M.S.N. - 05/27/2024 12:17 PM CDT SUBJECTIVE CHIEF COMPLAINT/REASON FOR VISIT Toe Pain (Has been on Keflex for same) HISTORY OF PRESENT ILLNESS History provided by: Patient REVIEW OF SYSTEMS Constitutional: Negative for chills and fever. HENT: Negative. Eyes: Negative. Respiratory: Negative. Cardiovascular: Negative. Gastrointestinal: Negative. Psychiatric/Behavioral: Negative. OBJECTIVE Initial Vitals Temperature 05/27/24 1206 36.1 ??C Pulse -- Heart Rate 05/27/24 1206 72 Resp Rate 05/27/24 1206 20 Blood Pressure 05/27/24 1206 132/68 SpO2 05/27/24 1206 95 % Pain Score 05/27/24 1205 0 - No pain PHYSICAL EXAMINATION Constitutional: He appears not lethargic. No distress. HENT: Head: Normocephalic. Pulmonary/Chest: Effort normal. Neurological: Alert and oriented to person, place, and time. Skin: Skin is normal color. He is not diaphoretic. Psychiatric: He has a normal mood and affect. ASSESSMENT/PLAN Charles Douglas is a 83 y.o. male who presents to the ED concerning for a wound check. Patient was recently diagnosed with a cellulitis on the left great toe and finish Keflex yesterday. He said he was told that he did have an ingrown toenail prior. He denies any other complaint and he just wants the toenail checks today. Differential diagnosis includes infected ingrown toenail, cellulitis, and others considered. On exam of the left great toe, no signs to suggest for cellulitis at this time. No significant erythema or warmth. No signs of ingrown toenail noted at this time. Plan: With reassuring exam, he is discharged home with return precautions. He states understanding. Final Diagnoses: as of 05/27/24 1220 General Medical Examination Adult The following tests were considered but ultimately not performed: Imaging considered but do not feel necessary.. Sg Sherwood APRN, C.N.P., M.S.N. 05/27/24 1220 documented in this encounter Plan of Treatment Upcoming Encounters Date Type Department Care Team (Late st Contact Info) Description 06/24/2024 2:00 PM CDT Office Visit Department of Family Medicine, [facility], in [address] [phone] Provider, Rick Placeholder Discharge Disposition: Home or Self Care 06/27/2024 3:00 PM CDT Clinical Support Department of Rehabilitation Services in [address] [phone] Miracle Tucker M.D. [address] [place] [address] [place] [phone] Sultana Reid O.T., O.TJunie [address] [place] [address] [place] [phone] 07/04/2024 3:00 PM CDT Clinical Support Department of Rehabilitation Services in [address] [place] [phone] Miracle Tucker M.D. [address] [place], [place] [address] [place] [phone] Sultana Reid O.T., O.TJunie [address] [place], [place] [address] [place] [phone] 07/10/2024 2:00 PM CDT Office Visit Department of Family Medicine, [facility], in [address] [place] [phone] Bradnon Sin M.D. [address] [place] [phone] Discharge Disposition: Home or Self Care 07/11/2024 3:00 PM CDT Clinical Support Department of Rehabilitation Services [address] [place] [phone] Miracle Tucker M.D. [address] [place], [place] [address] [place] [phone] Sultana Reid O.T., O.TJunie [address] [place] [address] [place] [phone] documented as of this encounter Visit Diagnoses Diagnosis General Medical Examination Adult- Primary documented in this encounter Additional Health Concerns Assessment Noted Time PHQ-9 Depression Total Score: 1 04/19/19 25 2:25 PM BIOLOGICS SPECIALIST documented as of this encounter Care Teams Grease Cup Filler Relationship Specialty Start Date End Date Miracle Tucker M.D. [address] [phone] PCP - General 07/30/23 [facility] Dental [facility]istry 11/30/23 [facility] Dental Dentistry 11/30/23 documented as of this encounter
--- OUTSIDE RECORDS SUMMARY | 2024-06-23 12:18 | XMS_ITS | Encounter Summary ---
Author Organization [facility] Address [address] [place] [address] Care Team Providers Care Press Maintainer Name Role Phone Miracle Tucker M.D. Primary Care Provider [phone]- [phone] Reason for Referral * Outpatient (Routine) - Authorized Specialty Diagnoses / Procedures Referred By Angelina rojas Referred To Contact Family Medicine Brandon Sin M.D. [address] [place] [phone] Phone: tel: fax: [facility] Referral ID Status Reason Start Date Expiration Date V isits Requested Visits Authorized [id number] Authorized 06/09/2024 12/09/2025 1 1 Reason for Visit * Reason Comments Follow-up Was seen at [facility] Neurology on 06/07. Other Needs big toe on lef t foot checked. Completed medication for cellulitis. * Appointment Request (Routine) - Closed Specialty Diagnoses / Procedures Referred By Angelina rojas Referred To Contact Family Medicine Referral ID Status Reason Start Date Expiration Date Visits Re quested Visits Authorized [id number] Closed 04/19/2024 07/20/2025 1 1 Encounter Details Date Type Department Care Team (Latest Contact Info) Description 06/09/2024 12:40 PM CDT Office Visit Department of Family Medicine, [facility], in [address] [phone] Brandon Sin M.D. 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 More than 4 times per year 05/14/2021 Do you belong to any clubs o r organizations such as anabaptism groups, unions, fraternal or athletic groups, or [...] Answer Date Recorded PHQ-2 Score 0 04/19/2024 [facility] Occupational Stress Questionnaire Answer Date [...] your living situation today? I have a [facility] place to live 11/30/2023 Education Answer Date Recorded What is the highest level of school you have completed or the highest degree you have received? 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 Gender Identity Male 07/29/2017 9:17 PM CDT Sexual Orientation Straight 07/29/2017 9: 17 PM CDT Occupation Industry Job Start Date Job End Date Not on file Not on file Not on file Not on file documented as of this encounter Last Filed Vital Signs Vital Sign Reading Time Taken Comments Blood Pressure 112/69 06/09/2024 12:35 PM CDT Pulse 74 06/09/2024 12:35 PM CDT Temperature 36.5 C (97.7 F) 06/09/2024 12:35 PM CDT Respiratory Rate - - Oxygen Saturation - - Inhaled Oxygen Concentration - - Weight 93.2 kg (205 lb 7.5 oz) 06/09/2024 12:35 PM CDT Height - - Body Mass Index 29.12 11/30/2023 10:00 AM CDT documented in this encounter Progress Notes * Brandon Sin M.D. - 06/09/2024 12:40 PM CDT DATE OF VISIT: 06/09/2024 SUBJECTIVE CHIEF COMPLAINT / REASON FOR VISIT Charles Douglas is a 83 y.o. male who presents for evaluation of Follow-up (Was seen at [facility]rology on 06/07. ) and Other (Needs big toe on left foot checked. Completed medication for cellulitis.). The patient verbally consented to an audio recording of their visit to assist with the completion of documentation. History of Present Illness Mr. Charles Douglas is an 83 year old male with a history of stroke who presents with right hand weakness and coordination issues. He has ongoing issues with right hand weakness and lack of coordination since his stroke. Being right-handed, this significantly impacts his daily activities. He is experiencing mood disturbances, describing his mood as 'rotten' with anhedonia, particularly in activities he previously enjoyed, such as playing the piano. He is sleeping 12 to 14 hours daily and has decreased motivation. He is currently taking mirtazapine. He reports a loss of taste, which he attributes to his stroke. He is uncertain about the prognosis for regaining this sense and has not yet discussed this with neurology. He had a recent infection in his right toe following a trip, which resolved after a course of antibiotics. He continues to apply Vaseline to the area, and the toe is no longer red. The following portions of the patient's history were reviewed and updated as appropriate: allergies, current medications, family history, medical history, social history, surgical history, and problem list. Brief Review of Systems: A brief review of systems was negative except for that mentioned in the history of present of illness. OBJECTIVE VITAL SIGNS BP 112/69 (BP Location: Left arm, Patient Position: Sitting, Cuff Size: Regular) Pulse 74 Temp 36.5 ??C (Temporal) Wt 93.2 kg BMI 29.12 kg/m?? Physical Exam GENERAL: Patient is in no distress. Capable of full communication without difficulty. Patient is polite and cooperative. HEENT: Normocephalic. EOMI, PERRL, Canals patent, TMs normal. Oropharynx without lesion of mucosa. Pharyngeal rises symmetrically without exudate. HEART: Regular rate and rhythm. No murmurs, gallops or rubs noted. LUNGS: Clear to auscultation bilaterally. No expiratory wheeze. No accessory muscles of respirationnoted. EXTREMITIES: No neurovascular compromise. No cyanosis, clubbing or edema. NEURO: Alert and oriented x3, nonfocal, moving all 4 extremities. CN II-XII grossly intact. 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 Occupational therapy expected to aid recovery, though improvement potential is uncertain. - Refer to occupational therapy for right hand rehabilitation. - Encourage adherence to prescribed exercises. 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 Previous sertraline ineffective. Wellbutrin chosen to improve mood and energy, with potential side effects of restlessness or anxiety. - Prescribe Wellbutrin once daily in the morning. - Monitor for side effects such as restlessness or anxiety. - Encourage engagement in daily activities and set a regular wake-up time. Follow-up Scheduled for follow-up to monitor occupational therapy and medication regimen progress. - Schedule follow-up in one month to assess Wellbutrin effectiveness and occupational therapy progress. Patient was instructed to follow up in primary care if symptoms are worsening or there is no improvement over the next several days. Plan was discussed with patient and is in agreement with plan. All questions were answered, side effects of any/all new medications were discussed. Patient left in no acute distress. Ready to learn. No apparent learning barriers were identified. Learning preferences include listening. Explained diagnosis and treatment plan. Patient/Child/Caregiver expressed understanding of the content. Brandon Sin M.D. documented in this encounter Plan of Treatment Upcoming Encounters Date Type Department Care Team (Late st Contact Info) Description 06/24/2024 2:00 PM CDT Office Visit Department of Family Medicine, [facility], in [address] [phone] ProviderRick Placeholder Discharge Disposition: Home or Self Care 06/27/2024 3:00 PM CDT Clinical Support Department of Rehabilitation Services in [address] [phone] Miracle Tucker M.D. [address] [place] [phone] Sultana Reid O.T., O.T.DVicki [address] [place] [phone] 07/04/2024 3:00 PM CDT Clinical Support Department of Rehabilitation Services in [address] [phone] Miracle Tucker M.D. [address] [place] [phone] Sultana Reid O.T., O.TJunie [address] [place] [phone] 07/10/2024 2:00 PM CDT Office Visit Department of Family Medicine, [facility], in [address] [place] [phone] Brandon Sin M.D. [address] [place] [phone] Discharge Disposition: Home or Self Care 07/11/2024 3:00 PM CDT Clinical Support Department of Rehabilitation Services in [address] [phone] Miracle Tucker M.D. 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 [address] [place] [phone] PCP - General 5/17/24 [facility] Dental Dentistry 11/30/23 [facility] Dental Dentistry 11/30/23 documented as of this encounter
--- OUTSIDE RECORDS SUMMARY | 2024-06-23 12:18 | XMS_ITS | Encounter Summary ---
Author Organization [facility] Address [address] [place] [id number] Care Team Providers Care Act Tutor Name Role Phone Jb Mosquera MD Unavailable [phone] Valentin Alejo MD Unavailable Jamal Mercado MD Unavailable [phone] Brandon Sin Primary Care Provider [phone] Jori Carrion MD Unavailable [phone] Jamal Mercado MD Unavailable [phone] Jazmine Moulton APRN [employer] CHIEF Unavailable [phone] Jazmine Moulton APRN, CNP Unavailable [phone] Reason for Visit * Reason Comments RECHECK No concerns Encounter Details Date Type Department Care Team (Late st Contact Info) Description 06/07/2024 1:00 PM CDT Office Visit [facility] [address], [address] [place] [address] Jazmine Moulton APRN [employer]W CHIEF NEUROLOGY [facility] NEUROCRIT[facility] [address] [place] [id number] Ischemic cerebrovascular accident (CVA) (H) (Primary Dx); TIA (transient ischemic attack) Social History Tobacco Use Types Packs/Day Years [...] on file 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 Gender Identity Not on file Sexual Orientation Not on file documented as of this encounter Last Filed Vital Signs Vital Sign Reading Time Taken Comments Blood Pressure 118/70 06/07/2024 1:01 PM CDT Pulse 77 06/07/2024 1:01 PM CDT Temperature - - Respiratory Rate - - Oxygen Saturation 97% 06/07/2024 1:01 PM CDT Inhaled Oxygen Concentration - - Weight 94.3 kg (208 lb) 06/07/2024 1:01 PM CDT Height - - Body Mass Index 29.01 07/22/2023 1:19 PM CDT documented in this encounter Patient Instructions * Patient Instructions* Jazmine Moulton APRN CNP - 06/07/2024 1:00 PM CDT -Continue aspirin 325mg daily -reduce lipitor to 20mg nightly (you can cut your current 40mg tablets in half until they are gone,then the new prescription will be for 20mg tablets) -keep an eye on mood; I do think an antidepressant could help you, particularly in participating inmore activities. Lexapro or Celexa could be options, but feel free to speak with your PCP as well -Follow up with me in 6 months, sooner if needed documented in this encounter Progress Notes * Jazmine Moulton APRN CNP - 06/07/2024 1:00 PM CDT Images from the original note were not included. [facility] - [place] [phone] History of Present Illness Chief Complaint: Patient presents with: RECHECK: No concerns Charles Douglas is a 83 year old male presenting for follow-up for left thalamic stroke. He was hospitalized at [facility] on 05/16/23-06/01 then rehab 06/01 to 06/15. Prior to the hospital stay, he had a past medical history of chronic back pain s/p laminotomy and lumbar decompression/fusion, rotator cuff injury s/p repair. He presented to the hospital with right facial droop and dysarthria. He was not treated with tenecteplase due to minor symptoms. MRI with left thalamic infarct, with new left occipital stroke on repeat imaging 05/22. He had quite a prolonged hospital stay. His exam worsened and he was put on heparin, then switch back to aspirin and Plavix, then heparin drip again, then Brilinta and aspirin, then Eliquis. He was quite perfusion dependent during the hospital stay and also found to have superficial venous thrombosis of the right lesser saphenous vein, the saphenous vein is why he was put on the Eliquis. 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 He was seen by hematology following discharge with resolution of the saphenous vein clot and it was recommended that he discontinue anticoagulation and transition back to antiplatelets. Most recent stroke follow-up was with myself 12/10/2023. At that time he reported resolution of right facial droop, visual deficit and speech deficits; he continued to have some difficulty with right hand/foot dexterity and some difficulty with recalling new information. He was continued on aspirin and Lipitor for secondary stroke prevention. Repeat LDL was ordered. Today, Charles presents with his Jone who contributes to review of systems and history. He reportsthat he is about the same since her most recent visit 6 months ago. He feels that he continues to have some slowness of speech and aphasia. He recently saw an aphasia specialist regarding this; he was given home therapy program but he is finding it difficult to be motivated to do this. He also continues to have some mild difficulty with right hand and foot dexterity; he is planning to see an occupational therapist who specializes in hand therapy next week. He has not been playing the piano as much. His has been encouraging him to do puzzles and games but he is also not enjoying this. He d oes note that he still enjoys travel; they went on a [employer] cruise in April which was enjoyable. He continues on aspirin with no concerns of excessive bruising or abnormal bleeding. He continues on Lipitor. LDL was 21 on 04/19/24 ([place]). He is checking blood pressure at home regularly and reports that readings are routinely <130/80. He is exercising with a recumbent bike 5 days/week. On clinical examination today he appears somewhat depressed with a flat affect. His also voices concern that he may be depressed. Charles does admit that he could have depression but that it is what it is. He had previously tried Zoloft for short-term but there was concern that the worsen his cognition so it was discontinued. We did discuss consideration of an alternative antidepressant todaybut he would like to hold off and speak with his PCP about this first. Modified [place] Scale Score: 3-Moderate disability; requiring some help, but able to walk without assistance Stroke Evaluation Summarized: New results resulted and reviewed by me today are in BOLD below. MRI/Head CT MRI 07/05: on personal review there are areas of subacute stroke in the L thalamic and occipital regions that appear similar to prior areas of known stroke, some possible extension of the L occipital stroke. No clear evidence of acute/new stroke. 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 Cervical Vasculature 50% stenosis of the proximal R ICA Echocardiogram EF 55%, distal inferoseptal hypokinesis, normal LA ANNA showed EF 60-65%, PFO present, negative for shunt EKG/Telemetry Sinus with 1st degree AVB Ziopatch: only wore for 7 days, no arrhythmia seen Other Testing CTP: mildly increased Tmax in the left occipital lobe suggests ischemia/oligemia Labs Lab Results Component Value Date LDL 67 05/17/2023 A1C 5.8 (H) 05/16/2023 CTROPT 17 05/17/2023 INR 1.12 05/17/2023 INR 1.02 05/16/2023 Home Medications Current Outpatient Medications Medication Sig Dispense Refill aspirin (ASA) 325 MG EC tablet Take 1 tablet (325 mg) by mouth daily. atorvastatin (LIPITOR) 40 MG tablet Take 0.5 tablets (20 mg) by mouth every evening. 90 tablet 1 polyethylene glycol (MIRALAX) 17 GM/Dose powder Take 17 g by mouth daily as needed for [id number] g 0 No current facility-administered medications for this visit. Physical Examination Physical Exam Estimated body mass index is 29.01 kg/m?? as calculated from the following: Height as of 07/22/23: 1.803 m (5' 11). Weight as of this encounter: 94.3 kg (208 lb). BP 118/70 Pulse 77 Wt 94.3 kg (208 lb) SpO2 97% BMI 29.01 kg/m?? General Exam General: Sitting up in chair in no acute distress Pulmonary: no respiratory distress Neurologic: Mental Status: alert, oriented x 3, follows commands, minimal loss of fluency, flat affect Cranial Nerves: visual nieves intact, EOMI with normal smooth pursuit, facial sensation intact and symmetric, facial movements symmetric, hearing not formally tested but intact to conversation, palate elevation symmetric and uvula midline, minimal intermittent dysarthria, shoulder shrug strong bilaterally, tongue protrusion midline Motor: normal muscle tone and bulk, no abnormal movements, able to move all limbs spontaneously Screenings and Questionnaires: Tobacco: Tobacco Use Smoking status: Never Passive exposure: Never Smokeless tobacco: Never Sleep Apnea: Depression: 06/07/2024 12:48 PM 07/06/2023 3:26 PM PHQ-2 (??1998 [employer]) Q1: Little interest or pleasure in doing things 1 1 Q2: Feeling down, depressed or hopeless 1 1 PHQ-2 Score 2 2 Q1: Little interest or pleasure in doing things Several days Q2: Feeling down, depressed or hopeless Several days PHQ-2 Score 2 Patient-reported Stroke Recovery and Risk Factors: 08/06/2023 10:45 AM Stroke Questionnaire Residual effects: Any residual effects from stroke? I have some symptoms, but I'm not sure if they're residual effects of the stroke Residual effects: Describe some balance issues and some short term memory Level of independence: Could you live alone? No Level of independence: Walking Need some help Level of independence: Eating Independent Level of independence: Stairs Need some help Level of independence: Dressing Independent Level of independence: Bathing Independent Level of independence: Toileting Independent Incontinence: Bowel? No Incontinence: Bladder? No Able to: Use electronics Yes Able to: Cook or do house chores No Able to: Do own shopping, including online No Able to: Manage own finances No Current therapy: Physical Therapy Yes Current therapy: Occupation Therapy Yes Current therapy: Speech Therapy Yes Current therapy: How often BANK ADVISOR daily at home and twice weekly at [facility] Current therapy: Other Yes Current therapy: What kind and how often other dailt ot, pt and speech with daughter Current services: Home Health No, but family helps a lot Medication: How do you take your meds Myself, from a pillbox that someone else sets up Medication: Do you ever miss or forget meds Rarely Risk Factor: Checking blood pressure at home Yes Risk Factor: Usual blood pressure numbers 125 over 70 Risk Factor: Second-hand smoke at home No Risk Factor: How much caffeine per day none Who completed this questionnaire? The patient with the help of someone because of physical limitation Assessment and Plan 1. 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 May 2023. 2. PFO, no indication for closure given age and likely stroke etiology of ICAD -continue ASA 325mg daily indefinitely for secondary stroke prevention; monitor for any signs of bleeding, if future providers request that you hold or stop taking this medication please contact our stroke neurology team to be included in the discussion -continue Lipitor 40mg, goal LDL 40-70. -Goal BP is <130/80 with tighter control associated with improved vascular outcomes -Mediterranean diet can be beneficial for overall decreased cardiovascular risk; moderate aerobic exercise with goal of 30 minutes/day x 5 days/week -consider adding antidepressant; would could Lexparo or celexa -potential candidate for Vivistim for upper extremity recovery after stroke; team notified - Return in about 6 months (around 12/08/2024) for stroke, with Justyna Moulton only, 60 min. Stroke Education provided. He will call us with any questions. For any acute neurologic deficits hewas advised to go directly to the hospital rather than call the clinic. Jazmine Moulton APRN CNP Neurology 06/07/2024 Billing: Please note: for coding purposes this visit should be billed only as established and not new, sincethis patient was seen by my same subspecialty team (ealth Vascular Neurology) during the hospitalization that this visit is a follow up for. I spent a total of 47 minutes on the day of the visit. Time spent by me today doing chart review, history and exam, documentation and further activities per the note documented in this encounter Nursing Notes * Joaquim Ceja - 06/07/2024 1:00 PM CDT Symptoms or concerns today: None Med comments: No sertraline Who the patient is here with today: - Jone Vargason documented in this encounter Plan of Treatment Upcoming Encounters Date Type Department Care Team (Late st Contact Info) Description 12/19/2024 1:30 PM CDT Office Visit [facility] - [address], [address] [place] [address] Jazmine Moulton APRN SUR[employer]Y CREW CHIEF NEUROLOGY [facility]UR[facility]IT[facility] [address] [place] [address] [phone] documented as of this encounter Visit Diagnoses Diagnosis Ischemic cerebrovascular accident (CVA) (H)- Primary TIA (transient ischemic attack) Unspecified transient cerebral ischemia documented in this encounter Care Teams Act Tutor Relationship Specialty Start Date End Date Brandon Sin [address] [place] [phone] PCP - General 07/06/23 Jb Mosquera MD [address] [place] [phone] Resident Physical Medicine and Rehabilitation 06/15/23 Valentin Alejo MD [address] [place] [id number] Neurology 06/15/23 Jamal Mercado MD [address] [place] [phone] Cardiovascular Disease 06/15/23 Jori Carrion MD [facility] [address] [address] Assigned Cancer Care Provider 08/05/23 Jamal Mercado MD [address] [place] [phone] Assigned Heart and Vascular Provider 08/05/23 Jazmine Moulton APRN SUR[employer]Y CREW CHIEF NEUROLOGY [facility] [address] [place] [address] [phone] Nurse Practitioner Psychiatry & Neurology Vascular Neurology 10/01/23 Jazmine Moulton APRN [facility] NEUROLOGY [facility]UR[facility]IT[facility] [address] [place] [id number] Assigned Surgical Provider 01/05/24 documented as of this encounter
--- OUTSIDE RECORDS SUMMARY | 2024-06-23 12:18 | XMS_ITS | Clinical Summary ---
Author Organization [facility] Address [address] [place] [address] Care Team Providers Care Career And Transition Teacher Name Role Phone Miracle Tucker M.D. Primary Care Provider [phone] Source Comments Patient records contain information from all sites at [facility]. For routine questions regarding patient records, call [phone] during business hours, M-F 8:00 AM - 5:00 PM Central Time. Record requests for emergency care only can be directed to [phone] at any time.[facility] Allergies Active Allergy Reactions Criticality Noted Date Comments Morphine Other (see comments) 05/16/2010 Pulmonary arrest Lungs Stopped Medications * This document contains information received from the source organization and may not represent a complete record from that organization. polyethylene glycol 3350 (MIRALAX ORAL) Take 17 g by mouth daily. 06/15/2023 Active aspirin 325 mg tablet Take 325 mg by mouth daily. In the evening Active atorvastatin (Lipitor) 40 mg tablet Take 1 tablet (40 mg total) by mouth every evening. 90 tablet 3 01/19/2024 Active buPROPion XL (Wellbutrin XL) 150 mg 24 hr tablet Take 1 tablet (150 mg total) by mouth every morning. 90 tablet 3 06/09/2024 Active predniSONE (Deltasone) 20 mg tablet Take 2 tablets (40 mg total) by mouth daily for 5 days. Take in the morning with food. 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 Dupuytren's 02/16/2013 Resolved Problems Problem Noted Date Diagnosed Date Resolved Date Infarction Cerebral 05/18/2023 08/30/19 24 COVID-19 Infection 07/15/2021 2 Carpal Tunnel Syndrome Bilateral 01/01/2021 09/10/2021 Numbness Hand 09/05/2020 09/10/2021 Fusion Lumbar Spine Status Post 08/05/2018 09/10/2021 Stenosis Spinal 08/02/2018 07/26/2019 Stenosis Spinal 07/12/2018 07/25/2018 Overview (07/12/2018): Added automatically from request for surgery [id number] Polyp Colon Personal History , Unspecified Type 06/26/2013 09/10/2021 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 Rash 06/22/2024 9:40 AM CDT - 06/22/2024 10:10 AM CDT [facility] [address] [place] [phone] Juan San APRN, C.N.P., D.N.PVicki Juarez (Primary Dx) Discharge Disposition: Home or Self Care 06/22/2024 Nurse Triage Department of [facility], [address] [phone] Bita Kwok R.N. Rash 06/19/2024 3:00 PM CDT Comprehensive Visit Department of Rehabilitation Services in [address] [phone] Miracle Tucker M.D. 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 Order Request (OT referral ) 05/29/2024 12:30 PM CDT Comprehensive Visit Department of Physical Medicine and Rehabilitation in [address] [phone] Miracle Tucker M.D. Englert, Jody L, [facility] [employer] DEBURRER Aphasia (Primary Dx) 05/27/2024 12:03 PM CDT - 05/27/2024 12:22 PM CDT Emergency [facility] [address] [place] [phone] Sg Sherwood APRN, C.N.P., M.S.N. General Medical Examination Adult (Primary Dx) Discharge Disposition: Home or Self Care 04/19/2024 1:53 PM IT NETWORK ADMINISTRATOR - 04/19/2024 11:59 PM IT NETWORK ADMINISTRATOR Hospital Encounter Department of Laboratory Medicine in [address] [phone] Brandon Sin M.D. Fatigue Discharge Disposition: Home or Self Care 04/19/2024 1:20 PM IT NETWORK ADMINISTRATOR Office Visit Department of [facility], [facility], in [address] [phone] Brandon Sin M.D. 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 Cerebrovascular Accident; Fatigue Discharge Disposition: Home or Self Care from Last 3 Months Immunizations Immunization Administration Dates Next Due H1N1 Inj 03/04/2009 HZV (ZOSTAVAX) 06/20/2012 Influenza high dose QV(65 ye ars or older) (PF) 12/31/2021,12/30/2020,01/04/2020 Influenza, Injectable, Quadrivalent 12/13,12/28/2016,12/30/2015,2014 Influenza, Quadrivalent, Adj uvanted, Preservative Free 11/29/2022 Influenza, Unspecified 12/24/2014,2014,01/19/2014,2012,12/31/2011,12/27/2010,01/30/2010 PCV13 07/16/2014 PPSV23 06/19/2005 RSV: respiratory syncytial v irus (AREXVY) recombinant vaccine 02/11/2023 RZV (SHINGRIX) 09/26/2019,07/26/2019 SARS-COV-2 (COVID-19) - PFIZ ER (Discontinued)(12 years or older) 12/30/2020,05/01/2020,04/10/2020 SARS-COV-2 (COVID-19) - PFIZ ER BIVALENT TS(Discontinued)(12 YEARS OR OLDER) 12/31/2021 SARS-COV-2 (COVID-19) - PFIZ ER Fall Seasonal (12 YEARS OR OLDER) 11/16/2023,11/29/2022,11/29/2022 SARS-COV-2 (COVID-19) - PFIZ ER TS(Discontinued)(12 years or older) 07/14/2021 Td (Adult), adsorbed 09/18/2008,04/30/1998 Tdap 09/18/2008 influenza trivalent high dos e (HD)(PF) 11/16/2023,12/29/2017 Family History Medical History Relation Name Comments Colon cancer Father Charles Sr. Emphysema Father Charles Sr. Tobacco abuse Father Charles Sr. Kidney disease Mother Ifeoma Douglas Relation Name Status Comments Father Charles Sr. Mother Ifeoma Douglas Social History Tobacco Use Types Packs/Day Years Used Date Smoking Tobacco: Former Cigarettes 0 08/27/1957 - 02/13/1964 Smokeless Tobacco: Never Tobacco Cessation:Counseling Given: Not Answered Alcohol Use Standard Drinks/Week Comments Yes 5 (1 standard drink = 0.6 oz pur e alcohol) [facility] Utilities Answer Date Recorded In the past 12 months has e [employer], gas, oil, or water [employer] threatened to shut off services in your [...] week 05/14/2021 How often do you attend [facility] or synagogue services? More than 4 times per year 05/14/2021 Do you belong to any clubs o r organizations such as muslim groups, unions, fraternal or athletic groups, or [...] Score 0 04/19/2024 [facility] - Occupational Stress [...] PM CDT Legal Sex Male 10:28 AM IT NETWORK ADMINISTRATOR Gender Identity Male 07/29/2017 9:17 PM CDT Sexual Orientation Straight 07/29/2017 9: 17 PM CDT Occupation Industry Job Start Date Job End Date Not on file Not on file Not on file Not on file Last Filed Vital Signs [...] oz) 06/22/2024 9:51 A M CDT Height 178.9 cm (5' 10.43) 11/30/2023 10:00 AM CDT Body Mass Index 29.12 11/30/2023 10:00 AM CDT Plan of Treatment Upcoming Encounters Date Type Department Care Team (Late st Contact Info) Description 06/24/2024 2:00 PM CDT Office Visit Department of Family Medicine, [facility], in [address] [phone] ProviderRick [address]holder Discharge Disposition: Home or Self Care 06/27/2024 3:00 PM CDT Clinical Support Department of Rehabilitation Services in [address] [phone] Miracle Tucker M.D. [address] [place] [phone] Sultana Reid O.T., O.T.[place] [address] [place] [phone] 07/04/2024 3:00 PM CDT Clinical Support Department of Rehabilitation Services in [address] [phone] Miracle Tucker M.D. [address] [place] [phone] Sultana Reid O.T., O.TJunie [address] [place] [phone] 07/10/2024 2:00 PM CDT Office Visit Department of Family Medicine, [facility], in [address] [phone] Brandon Sin M.D. [address] [place] [phone] Discharge Disposition: Home or Self Care 07/11/2024 3:00 PM CDT Clinical Support Department of Rehabilitation Services in [address] [phone] Miracle Tucker M.D. [address] [place] [phone] Sultana Reid O.T., O.T.[place] [address] [place] [phone] Health Maintenance Due Date Last Done Comments DTaP,Tdap,and Td Vaccines (2 - Td or Tdap) 09/18/2018 09/18/2008, 09/18/2008, 04/30/1998 COVID-19 Vaccine ( season) 2024 11/16/2023, 11/29/2022, 11/29/2022, Additional history exists Visit: Medicare Annual Wellness 11/30/2024 11/30/2023, 09/11/2022 Pneumococcal vaccine (50+ years) Completed 07/16/2014, 06/19/2005 Colonoscopy After Positive Cologuard Discontinued 09/02/2017 Zoster Vaccines Completed 09/26/2019, 07/13, 06/20/2012 RSV vaccine - (32-36 weeks) or 60+ years Completed 02/11/2023 Influenza Vaccine Completed 11/16/2023, , 12/31/2021, Additional history exists Depression Screening (Annual PHQ-2) Completed 04/19/2024, 04/19/2024 Fall Risk Screen (Annual) Completed 04/19/2024 Visit: Annual, age 65+ (or Medicare and <65) Discontinued 06/09/2024 IPV Vaccines Aged Out No longer eligi ble based on patient's age to complete this topic Medical Devices Implanted Type Area Edger Technician Device Identifier Shelf Expiration Date Model / Serial / Lot Grft Bn Vvg Db 5 - [id number] - [id number] 1 Implanted:Qt y: 1 on 08/02/2018 by Edwin Torres M.D. at [facility] Bone or Tissue Posterior : Spine Lumbar [facility] 07/21/2019 [id number] / [id number] / NA Gr Grf Dbf Matrix 2.5x10cm - [id number] - [id number] 1 Implanted:Qt y: 1 on 08/02/2018 by Edwin Torres M.D. at [facility] Bone or Tissue Posterior : Spine Lumbar Medtronic 03/16/2021 [id number] / [id number] / Grft Grf Dbm Pst 10 - [id number] - [id number] 1 Implanted:Qt y: 1 on 08/02/2018 by Edwin Torres M.D. at [facility] Bone or Tissue Posterior : Spine Lumbar Medtronic 06/05/2020 [id number] / [id number] / Conduit 11 Mm Cage Implanted:Qt y: 1 on 08/02/2018 by Edwin Torres M.D. at [facility] Hardware e.g. pins/screws /rods Posterior : Spine Lumbar Depuy Spine [id number] / / [id number] Spn Scrw Exp Sld 7.5x55 - [id number] 1 Implanted:Qt y: 1 on 08/02/2018 by Edwin Torres M.D. at [facility] Hardware e.g. pins/screws /rods Posterior : Spine Lumbar Depuy Spine [id number] / / Spn Scrw Exp Sld 7x55 - [id number] 1 Implanted:Qt y: 7 on 08/02/2018 by Edwin Torres M.D. at [facility] Hardware e.g. pins/screws /rods Posterior : Spine Lumbar Depuy Spine [id number] / / Spn Kp Exp W/Ln 5.5x95 - [id number] 1 Implanted:Qt y: 2 on 08/02/2018 by Edwin Torres M.D. at [facility] Hardware e.g. pins/screws /rods Posterior : Spine Lumbar Depuy Spine [id number] / / Spn Scrw Exp Thrd 5.5 - [id number] 1 Implanted:Qt y: 8 on 08/02/2018 by Edwin Torres M.D. at [facility] Hardware e.g. pins/screws /rods Posterior : Spine Lumbar Depuy Spine [id number] / / Explanted Type Area Edger Technician Device Identifier Shelf Expiration Date Model / Serial / Lot Hardware E.G. Pins/Screws/Ro ds-03/15/1987 Implanted:03/1987 (Quantity not on file) Explanted:Qty: 22 on 08/02/2018 by Edwin Torres M.D. at [facility] Hardware e.g. pins/screws/r ods Back Description:4 screws, 2 rods , 16 set screw and nut pieces. Procedures Procedure Name Priority Date/Time Associated Diagnosis Comments CBC WITH DIFFERENTIAL, B Routine 04/19/2024 2:02 PM IT NETWORK ADMINISTRATOR Fatigue LIPID PANEL, S Routine 04/19/2024 2:01 PM IT NETWORK ADMINISTRATOR Fatigue THYROID-STIMULATING HORMONE-SENSITIVE (S-TSH) Routine 04/19/2024 2:01 PM IT NETWORK ADMINISTRATOR Fatigue COMPREHENSIVE METABOLIC PANEL, S/P Routine 04/19/2024 2:01 PM IT NETWORK ADMINISTRATOR Fatigue from Last 3 Months Results * CBC with Differential, Blood (04/19/2024 2:02 PM IT NETWORK ADMINISTRATOR) Hemoglobin 15.5 13.2 - 16.6 g/dL 04/19/2024 2:27 PM IT NETWORK ADMINISTRATOR CNFL Hematocrit 47.4 38.3 - 48.6 % 04/19/2024 2:27 PM IT NETWORK ADMINISTRATOR CNFL Erythrocytes 4.91 4.35 - 5.65 x10(12)/L 04/19/2024 2:27 PM IT NETWORK ADMINISTRATOR CNFL MCV 96.5 78.2 - 97.9 fL 04/19/2024 2:27 PM IT NETWORK ADMINISTRATOR CNFL RBC Distrib Width 13.1 11.8 - 14.5 % 04/19/2024 2:27 PM IT NETWORK ADMINISTRATOR CNFL Platelet Count 198 135 - 317 x10(9)/L 04/19/2024 2:27 PM IT NETWORK ADMINISTRATOR CNFL Leukocytes 8.3 3.4 - 9.6 x10(9)/L 04/19/2024 2:27 PM IT NETWORK ADMINISTRATOR CNFL Neutrophils 5.65 1.56 - 6.45 x10(9)/L 04/19/2024 2:27 PM IT NETWORK ADMINISTRATOR CNFL Lymphocytes 1.95 0.95 - 3.07 x10(9)/L 04/19/2024 2:27 PM IT NETWORK ADMINISTRATOR CNFL Monocytes 0.65 0.26 - 0.81 x10(9)/L 04/19/2024 2:27 PM IT NETWORK ADMINISTRATOR CNFL Eosinophils 0.07 0.03 - 0.48 x10(9)/L 04/19/2024 2:27 PM IT NETWORK ADMINISTRATOR CNFL Basophils <0.04 0.01 - 0.08 x10(9)/L 04/19/2024 2:27 PM IT NETWORK ADMINISTRATOR CNFL Blood (Blood, Venous) 04/19/2024 2:02 PM IT NETWORK ADMINISTRATOR 04/19/2024 2:03 PM IT NETWORK ADMINISTRATOR us Brandon Sin M.D. LAB BLOOD ADD-ON Final Re sult [facility] [address] [place] [phone], [facility] CNFL [facility] in [address] [address] * Lipid Panel (04/19/2024 2:01 PM IT NETWORK ADMINISTRATOR) Triglycerides 104 mg/dL 04/19/2024 2:29 PM IT NETWORK ADMINISTRATOR CNFL Comment: ----REFERENCE VALUE---- Normal: <150 mg/dL Borderline High: 150-199 mg/dL High: 200-499 mg/dL Very High: > or =500 mg/dL Cholesterol, Total 87 mg/dL 2024 2:29 PM IT NETWORK ADMINISTRATOR CNFL Comment: ----REFERENCE VALUE---- Desirable: < 200 mg/dL Borderline High: 200 - 239 mg/dL High: > or = 240 mg/dL Cholesterol, LDL, Calculated 21 mg/dL 04/19/2024 2:29 PM IT NETWORK ADMINISTRATOR CNFL Comment: ----REFERENCE VALUE---- Desirable: <100 mg/dL Above Desirable: 100-129 mg/dL Borderline High: 130-159 mg/dL High: 160-189 mg/dL Very High: >=190 mg/dL ----ADDITIONAL INFORMATION---- LDL cholesterol calculated using the Potter/NIH equation. Cholesterol, HDL 47 >=40 mg/dL 04/19/19 2:29 PM IT NETWORK ADMINISTRATOR CNFL Cholesterol, Non-HDL, Calculated 40 mg/dL 04/19/2024 2:29 PM IT NETWORK ADMINISTRATOR CNFL Comment: ----REFERENCE VALUE---- Desirable: <130 mg/dL Above Desirable: 130-159 mg/dL Borderline High: 160-189 mg/dL High: 190-219 mg/dL Very High: > or =220 mg/dL Fasting (8 HR or more) No 04/19/2024 2:02 PM IT NETWORK ADMINISTRATOR CNFL Blood (Blood, Venous) 04/19/2024 2:01 PM IT NETWORK ADMINISTRATOR 04/19/2024 2:03 PM IT NETWORK ADMINISTRATOR us Brandon Sin M.D. LAB BLOOD ADD-ON Final Re sult [facility] [address] [place] [phone], [facility] CNFL [facility] [place] [address] * (ABNORMAL) S-TSH (Thyroid-Stimulating Hormone - Sensitive) (04/19/2024 2:01 PM IT NETWORK ADMINISTRATOR) TSH, Sensitive 6.1(H) 0.3 - 4.2 mIU/L 04/19/2024 2:38 PM IT NETWORK ADMINISTRATOR CNFL Blood (Blood, Venous) 04/19/2024 2:01 PM IT NETWORK ADMINISTRATOR 04/19/2024 2:02 PM IT NETWORK ADMINISTRATOR us Brandon Sin M.D. LAB BLOOD ADD-ON Final Re sult Performing Organization Address [facility]/ZIP Co de Phone Number [facility] [address] [place] [phone], [place] CNFL [facility] [place] [address] * (ABNORMAL) Comprehensive Metabolic Panel (04/19/2024 2:01 PM IT NETWORK ADMINISTRATOR) Potassium, P 4.7 3.6 - 5.2 mmol/L 04/19/2024 2:29 PM IT NETWORK ADMINISTRATOR CNFL Sodium, P 146(H) 135 - 145 mmol/L 04/19/2024 2:29 PM IT NETWORK ADMINISTRATOR CNFL Chloride, P 108(H) 98 - 107 mmol/L 04/19/2024 2:29 PM IT NETWORK ADMINISTRATOR CNFL Bicarbonate, P 29 22 - 29 mmol/L 04/19/2024 2:29 PM IT NETWORK ADMINISTRATOR CNFL Anion Gap, P 9 7 - 15 04/19/2024 2:29 PM IT NETWORK ADMINISTRATOR CNFL BUN (Blood Urea Nitrogen), P 17 8 - 24 mg/dL 04/19/2024 2:29 PM IT NETWORK ADMINISTRATOR CNFL Creatinine 1.09 0.74 - 1.35 mg/dL 04/19/2024 2:29 PM IT NETWORK ADMINISTRATOR CNFL Estimated GFR (eGFR) 67 >=60 mL/min/BS A 04/19/2024 2:29 PM IT NETWORK ADMINISTRATOR CNFL Comment: Estimated GFR calculated using the 2020 CKD_EPI creatinine equation. Calcium, Total, P 9.5 8.8 - 10.2 mg/dL 04/19/2024 2:29 PM IT NETWORK ADMINISTRATOR CNFL Glucose, P 89 70 - 140 mg/dL 04/19/2024 2:29 PM IT NETWORK ADMINISTRATOR CNFL Protein, Total, P 7.4 6.3 - 7.9 g/dL 04/19/2024 2:29 PM IT NETWORK ADMINISTRATOR CNFL Albumin, P 4.3 3.5 - 5.0 g/dL 04/19/2024 2:29 PM IT NETWORK ADMINISTRATOR CNFL Aspartate Aminotransferase (AST), P 43 8 - 48 U/L 04/19/2024 2:29 PM IT NETWORK ADMINISTRATOR CNFL Alkaline Phosphatase, P 67 40 - 129 U/L 04/19/2024 2:29 PM IT NETWORK ADMINISTRATOR CNFL Alanine Aminotransferase (ALT), P 78(H) 7 - 55 U/L 04/19/2024 2:29 PM IT NETWORK ADMINISTRATOR CNFL Bilirubin, Total, P 1.8(H) 0.0 - 1.2 mg/dL 04/19/2024 2:29 PM IT NETWORK ADMINISTRATOR CNFL Blood (Blood, Venous) 04/19/2024 2:01 PM IT NETWORK ADMINISTRATOR 04/19/2024 2:03 PM IT NETWORK ADMINISTRATOR Brandon Sin M.D. 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 Advance Directives 08/09/2018 POA for H ealthcare * DNR/DNI (Latest Code Status on File) Date Activated Date Inactivated Comments 08/05/2018 3:07 PM 08/10/2018 2:55 PM * Full Code Date Activated Date Inactivated Comments 08/05/2018 2:33 PM 08/05/2018 3:07 PM Question Answer Comments Full Code: Discussed * Full Code Date Activated Date Inactivated Comments 08/02/2018 4:04 PM 08/05/2018 1:46 PM Question Answer Comments Full Code: Discussed * Full Code Date Activated Date Inactivated Comments 09/02/2017 1:43 PM 09/02/2017 4:16 PM Question Answer Comments Full Code: Discussed * Full Code Date Activated Date Inactivated Comments 09/02/2017 11:30 AM 09/02/2017 1:43 PM Question Answer Comments Full Code: Discussed Healthcare Agents on File Name Relationship Healthcare Agent Relationship Communication Malia Douglas Spouse Health Care Agent Gloria Barron Daughter First Rupesh te Health Care Agent [email or web address] Care Teams Career And Transition Teacher Relationship Specialty Start Date End Date Miracle Tucker M.D. [address] [place] [phone] PCP - General 07/30/23 [facility] Dental Dentistry 11/30/23 [facility] Dental Dentistry 11/30/23
--- OUTSIDE RECORDS SUMMARY | 2024-06-23 12:18 | XMS_ITS | Encounter Summary ---
Author Organization [facility] Address [address] [place] [id number] Care Team Providers Care Food Service Attendant Name Role Phone Miracle Tucker M.D. Primary Care Provider [phone] Reason for Visit * Reason Onset Date Comments Rash 06/23/2024 Encounter Details Date Type Department Care Team (Late st Contact Info) Description 06/23/2024 Nurse Triage Department of Family Medicine, [facility], in [address] [phone] Concepcion Monae RYing [address] [place] [phone] Rash Social History Tobacco Use Types Packs/Day Years Used Date Smoking Tobacco: Former Cigarettes 0 08/27/1957 - 02/13/1964 Smokeless Tobacco: Never Alcohol Use Standard Drinks/Week Comments Yes 5 (1 standard drink = 0.6 oz pur e alcohol) [facility] Utilities Answer Date Recorded In [...] How often do you attend chur or anglican services? More than 4 times per year 05/14/2021 Do you belong to any clubs o r organizations such as advent groups, unions, fraternal or athletic groups, or [...] Answer Date Recorded PHQ-2 Score 0 04/19/2024 [facility] - Occupational Stress [...] your living situation today? I have a [facility] place to live 11/30/2023 Education Answer Date Recorded What is the highest level of school you have completed or the highest degree you have received? Doctorate 08/17/2018 Sex and Gender Information Value Date Recorded Sex Assigned at Male 07/29/2017 9:17 PM CDT Legal Sex Male 10:28 AM [employer] Gender Identity Male 07/29/2017 9:17 PM CDT Sexual Orientation Straight 07/29/2017 9: 17 PM CDT Occupation Industry Job Start Date Job End Date Not on file Not on file Not on file Not on file documented as of this encounter Miscellaneous Notes * Telephone Encounter - Concepcion Monae R.N. - 06/23/2024 10:23 AM CDT Chief Complaint / Reason for Call Patient is a 83 y.o. male calling regarding Rash. Assessment Concern: Malia calls in for her Charles with a rash. She reports they were in to the ED yesterday and was informed that if the rash worsened he should come in for an appointment. He was given asteroid in the ED, and has taken a couple doses of that, but it has not helped. Present for: see ED note dated 06/22/24 Home cares tried: following recommendations without improvement. Calling to request: an appointment. The recommended disposition is See a health care provider within 24 hours. Encouraged to go to the ED if symptoms become urgent. Caller was warm transferred to [facility], Patient Appointment Charge Entry Specialist at the clinic for further assistance. Reason for Disposition SEVERE itching (i.e., interferes with sleep, normal activities or school) Protocols used: Rash or Redness - [id number] documented in this encounter Plan of Treatment Upcoming Encounters Date Type Department Care Team (Late st Contact Info) Description 06/24/2024 2:00 PM CDT Office Visit Department of Family Medicine, [facility], in [address] [phone] ProviderRick Discharge Disposition: Home or Self Care 06/27/2024 3:00 PM CDT Clinical Support Department of Rehabilitation Services in [address] [phone] Miracle Tucker M.D. [address] [place] [phone] Sulatna Reid O.T., O[place] [address] [place] [phone] 07/04/2024 3:00 PM CDT Clinical Support Department of Rehabilitation Services in [address] [phone] Miracle Tucker M.D. [address] [place] [phone] Sultana Reid O.T., O.TJunie [address] [place] [phone] 07/10/2024 2:00 PM CDT Office Visit Department of Family Medicine, [facility], in [address] [phone] Brandon Sin M.D. [address] [place] [phone] Discharge Disposition: Home or Self Care 07/11/2024 3:00 PM CDT Clinical Support Department of Rehabilitation Services in [address] [phone] Miracle Tucker M.D. [address] [place] [phone] Sultana Reid O[employer]T., [place] [address] [place] [phone] documented as of this encounter Visit Diagnoses Not on filedocumented in this encounter Additional Health Concerns Assessment Noted Time PHQ-9 Depression Total Score: 1 04/19/19 25 2:25 PM [employer] INS[employer]OR documented as of this encounter Care Teams Food Service Attendant Relationship Specialty Start Date End Date Miracle Tucker M.D. [address] [place] [phone] PCP - General 07/30/23 [facility] 11/30/23 [facility] 11/30/23 documented as of this encounter
[2024-06-23 12:27] LABS: Albumin* 4.4 g/dL (3.3-5.0); Chloride* 101 mmol/L (96-114); Potassium* 4.3 mmol/L (3.6-5.1); Sodium* 139 mmol/L (135-149)
[2024-06-23 12:30] LABS: Alanine Aminotransferase* 36 U/L (4-50); Alkaline Phosphatase* 57 U/L (40-150); Anion Gap 9 mEq/L (7-15); Aspartate Amino Transferase* 25 U/L (12-35); Bilirubin Total* 2.8 mg/dL (0.1-1.5); Blood Urea Nitrogen* 23 mg/dL (7-30); Carbon Dioxide* 29 mmol/L (20-32); Creatinine* 1.2 mg/dL (0.5-1.5); Est. Creatinine Clearance* 47.93; Estimated Glomerular Filt Rate 59 ml/min; Total Protein* 7.3 g/dL (6.0-8.3)
[2024-06-23 12:31] LABS: Calcium* 9.3 mg/dL (8.4-10.6); Glucose* 136 mg/dL (60-115)
[2024-06-23 12:33] LABS: C Reactive Protein* 2.1 mg/dL (0.5-1.0)
[2024-06-23 13:11] LABS: Erythrocyte SedimentationRate* 5 mm/hr (2-15)
== END 2024-06-23 13:04 | disposition home or self-care (01) ==
PROVIDERS: Emergency Provider Family Medicine; PCP Student in an Organized Health Care Education/Training Program
DX: R21 Rash and other nonspecific skin eruption (principal); T43.295A Adverse effect of other antidepressants, initial encounter
CPT/HCPCS: 36415; 80053; 85025; 85651; 86140; 99283